=== PATIENT | female | born 1945 | race Caucasian/White ===

== ENCOUNTER 2020-10-03 23:03 | Inpatient (IN) | payer MEDICARE, SELFPAY ==
[2020-10-03 23:36] LABS: #Eosinphils 0.1 thou/uL (0.0-0.7); #Lymphocytes 1.2 thou/uL (1.20-3.40); #Monocytes 0.4 thou/uL (0.11-0.59); %Basophils 0.2 % (0.0-1.0); %Eosinophils 0.5 % (0.0-10.0); %Monocytes 3.3 % (0.0-10.0); Hemoglobin 14.1 g/dL (12.0-16.0); Mean Corpuscular HGB CONC 32.8 g/dL (32.0-36.0); Mean Corpuscular Hemoglobin 30.2 pg (27.0-31.0); Mean Platelet Volume 9.8 fL (7.4-10.4); Platelet Count 149 thou/uL (130-400); RBC Distribution Width 13.4 % (11.5-14.5); Red Blood Cell (RBC) Count 4.67 mill/uL (4.20-5.40); White Blood Cell (WBC) Count 10.6 thou/uL (4.8-10.8)
[2020-10-03 23:42] LABS: PTT 23.9 sec (22.9-36.1); Prothrombin Time 13.3 sec (12.0-14.7)
--- NOTE | 2020-10-03 23:48 | RAD ---
Chest one view Abdomen 2 views HISTORY: Abdominal pain. Colon obstruction. FINDINGS: Cardiac silhouette is magnified by projection. Pulmonary vasculature is unremarkable. No lobar consolidation or evidence of pneumothorax. There is gaseous distention of the colon. Rectum is not distended with gas. Contrast material is pres ent within the urinary bladder from recent CT. No differential air-fluid levels or evidence of free subdiaphragmatic gas. IMPRESSION : Gaseous distention of the colon, correlating with obstructive findings (at the sigmoid colon) seen on recent CT exam.
[2020-10-04] LABS: ALT (SGPT) 15 U/L (8-55); AST (SGOT) 40 U/L (5-34); Albumin 3.6 g/dL (3.4-4.8); Alkaline Phosphatase 69 U/L (40-110); Anion Gap 16 mmol/L (10-20); BUN (Urea Nitrogen) 21 mg/dL (9.8-20.1); Bilirubin, Total 0.4 mg/dL (0.2-1.2); CK (CPK) 49 U/L (29-168); Calc. Creatinine Clearance 0 mL/min (70-130); Calcium 9.9 mg/dL (7.8-10.44); Carbon Dioxide 23 mmol/L (23-31); Chloride 104 mmol/L (98-107); Globulin 3.3 g/dL (2.4-3.5); Glucose 134 mg/dL (83-110); Magnesium 2.1 mg/dL (1.6-2.6); Potassium 4.3 mmol/L (3.5-5.1); Protein, Total 6.9 g/dL (6.0-8.3); Sodium 139 mmol/L (136-145)
[2020-10-04] MEDS ORDERED: Ondansetron PF 4 MG/2 ML Vial ONE ×2 (00:19→09:38)
[2020-10-04] MEDS ORDERED: Morphine 4 MG/ML VIAL ONE (00:19)
[2020-10-04 03:17] VITALS: BMI 36.1
[2020-10-04] MEDS ORDERED: Morphine 4 MG/ML VIAL SLOW IVP PRN ×2 (03:40→14:19)
[2020-10-04] MEDS ORDERED: Ondansetron ODT 4 MG TAB SL PRN (03:45)
[2020-10-04] MEDS ORDERED: Acetaminophen 325 MG TAB PO PRN (03:45)
[2020-10-04] MEDS: Ondansetron PF 4 MG/2 ML Vial IVP PRN ×2 (03:46→08:16)
[2020-10-04] MEDS: Sodium Chloride 0.9% 1,000 ML IV SCH ×2 (03:47→12:07)
[2020-10-04 09:24] LABS: SARS-CoV-2 MS2 Positive; SARS-CoV-2 N Gene Negative; SARS-CoV-2 S Gene Negative; SARS-CoV-2 by NAA Not Detected (NotDetected); SARS-CoV-2 orf1ab Negative
[2020-10-04] MEDS ORDERED: Glycopyrrolate 0.2 MG/ML 5 ML SYRINGE ONE (09:38)
[2020-10-04] MEDS ORDERED: PHENYLEPHRINE-NS 100 MCG/ML 10 ML SYRINGE ONE (09:38)
[2020-10-04] MEDS ORDERED: Dexamethasone 20 MG/5 ML VIAL ONE (09:38)
[2020-10-04] MEDS ORDERED: Lidocaine 1% PF 5 ML VIAL ONE (09:38)
[2020-10-04] MEDS ORDERED: Succinylcholine 200 MG/10 ml SYRINGE FS ONE (09:38)
[2020-10-04] MEDS ORDERED: PROPOFOL 200 MG/20 ML VIAL ONE (09:38)
[2020-10-04] MEDS ORDERED: Rocuronium Bromide 10 MG/ML (10ML VIAL) ONE (09:38)
[2020-10-04] MEDS ORDERED: Ondansetron PF 4 MG/2 ML Vial IVP PRN ×2 (14:19→21:08)
[2020-10-04] MEDS ORDERED: Ondansetron ODT 4 MG TAB PO PRN (14:19)
[2020-10-04] MEDS ORDERED: Morphine 2 MG/ML VIAL SLOW IVP PRN (14:19)
[2020-10-04] MEDS ORDERED: hydrALAZINE 20 MG/ML VIAL SLOW IVP PRN (14:19)
[2020-10-04] MEDS ORDERED: Piperacillin/Tazobactam 4.5 GM in Sodium Chloride 0.9% 100 ML IVPB SCH (14:30)
--- NOTE | 2020-10-04 14:44 | HP ---
HISTORY OF PRESENT ILLNESS: Emma Navarro is a 75-year-old female, , lives by herself in [place]. She is ambulatory with a cane and wheeled walker at home. She experienced acute onset of pain yesterday. She had a small bowel movement yesterday morning, followed by crampy abdominal pain and distention and has not passed flatus or stool since. She presented to the [place] [facility], had a CAT scan revealing what appeared to be a masslike effect in the sigmoid colon and proximal colonic obstruction. The patient reports having had a colonoscopy she thinks two years ago, more or less in [place] and was told that was normal. She said that she has never had that again because of the prep experience. Family history for colon cancer is negative. ALLERGIES: NONE. TOBACCO: None. ALCOHOL: She has an occasional wine at night. MEDICATIONS AT HOME: 1. Eyedrops. 2. Hygroton 1 tab p.r.n. 3. Ditropan p.r.n. b.i.d. 4. Lipitor h.s. 5. Fosamax q.7 days. 6. Clonidine 1 tab p.o. daily. 7. Lisinopril 1 tab p.o. b.i.d. 8. Carvedilol 1 tab p.o. b.i.d. 9. Allopurinol 1 tab daily. PAST MEDICAL HISTORY: Hypertension and gout. PAST SURGICAL HISTORY: Hysterectomy, total; BSO; appendectomy. She reports having a colonoscopy she thinks two years ago or more. She reports having a cardiac stress test several years ago. She reports past history of diverticulitis, but not in the past five to eight years. REVIEW OF SYSTEMS: Ten point otherwise noncontributory. No cardiac symptoms. FAMILY HISTORY: Noncontributory. PHYSICAL EXAMINATION: VITAL SIGNS: Height 5 feet 1 inch, weight 191 pounds, 36 BMI. Temperature 98 degrees, pulse 75, blood pressure 160/65. HEAD, EARS, EYES, NOSE, AND THROAT: Unremarkable. GCS 15. NEUROLOGICAL: Intact. NECK: Carotids palpable without bruits. No neck masses. AXILLA: Without masses. GROIN: Without masses. LUNGS: Clear to auscultation. No wheezing. CARDIAC: Regular rate and rhythm without murmur or gallop. ABDOMEN: Distended, tympanitic, slightly tender, massively distended. EXTREMITIES: Unremarkable. Palpable pulses. LABORATORY DATA: White count 10 and hemoglobin 14. Basic metabolic profile unremarkable. BUN and creatinine 21 and 0.87. Liver function tests normal. COVID negative. ASSESSMENT AND PLAN: 1. Colonic obstruction, sigmoid. We will discuss with GI and coordinate sigmoidoscopy/proctoscopy and probable laparotomy with colon resection and colostomy. She understands risks and benefits and consents. 2. Hypertension. 3. Gout. 4. Obesity, BMI 36. Job ID: [id number]
[2020-10-04] MEDS ORDERED: Ketorolac Tromethamine 30 MG/ML VIAL IVP SCH (15:00)
[2020-10-04] MEDS: Lactated Ringer's 1,000 ML IV SCH (16:09)
[2020-10-04] MEDS: Gabapentin 300 MG CAP PO SCH ×2 (16:09→23:54)
[2020-10-04] MEDS ORDERED: Fentanyl 100 MCG/2 ML VIAL ONE ×3 (16:52→21:45)
[2020-10-04] MEDS ORDERED: Sodium Chloride 0.9% 100 ML ONE (17:11)
--- NOTE | 2020-10-04 18:22 | CON ---
DATE OF CONSULTATION: 10/04/2020 REQUESTING PHYSICIAN: Manuelito Nelson MD REASON FOR CONSULTATION: Colonic obstruction. HISTORY OF PRESENT ILLNESS: Emma Navarro is a very pleasant 75-year-old woman, who was admitted here today after being transferred from [place] with concern for sigmoid colon obstruction. She has a history significant for hysterectomy and appendectomy. She recalls having had an attack of diverticulitis greater than 5 years ago, which resolved with antibiotics. She recalls having had similar presentation with severe abdominal pain and distention and having had a colonoscopy within the past year, she believes it was in October 2019 in [place]. She says she was told it was very difficult exam, but that there were no significant findings. I see a CT scan had been performed at that time, which had evidently suggested sigmoid obstruction. At any rate, the patient did just fine without any ongoing gastrointestinal symptoms for most of the year, but yesterday she had the acute onset of severe lower abdominal cramping pain, which became more generalized and she had progressive abdominal distention, nausea and vomiting. The crampy pain remains severe. She has not passed any gas or had any bowel movement since yesterday morning prior to onset of symptoms. She is hemodynamically stable. CT scan at the outside ER demonstrated sigmoid obstruction with severely distended bowel above the area and nondistended rectum with mass-like prominence focally in the sigmoid colon, suspicious for neoplasm with subtle adjacent fat stranding. She has been evaluated by General surgery, Dr. Nelson, who is planning for laparoscopy and possible partial colectomy later today. We are consulted for consideration of preoperative sigmoidoscopic evaluation. REVIEW OF SYSTEMS: Full review of systems including constitutional, head, eyes, ears, nose, throat, GI, , cardiovascular, respiratory, musculoskeletal, neurologic systems is negative except as noted in the HPI. PAST MEDICAL HISTORY: Hypertension, gout, hysterectomy, bilateral salpingo-oophorectomy, appendectomy, diverticulitis greater than 5 years ago. ALLERGIES: NO KNOWN DRUG ALLERGIES. OUTPATIENT MEDICATIONS: 1. Hygroton. 2. Lasix. 3. Ditropan. 4. Lipitor. 5. Fosamax. 6. Clonidine. 7. Lisinopril. 8. Coreg. 9. Allopurinol. FAMILY HISTORY: Negative for colon cancer. SOCIAL HISTORY: She does not smoke. She will occasionally have a glass of wine. PHYSICAL EXAMINATION: VITAL SIGNS: Temperature 98.0, pulse 75, blood pressure 160/65, and oxygen saturation 90% on room air. GENERAL: A 75-year-old woman, lying in bed comfortably, in mild distress from abdominal pain. SKIN: No jaundice, no rashes were palpable. EYES: No scleral icterus. Extraocular movements intact. ENT: Mucous membranes moist. No oral lesions. LYMPH: No submandibular or supraclavicular lymphadenopathy. THYROID: Nontender to palpation. HEART: Regular rate and rhythm. LUNGS: Clear to auscultation bilaterally. ABDOMEN: Severely distended, tympanitic to percussion throughout. Bowel sounds are hypoactive. Soft, diffusely tender to palpation, but no guarding or rebound tenderness. EXTREMITIES: No peripheral edema. VESSELS: Radial pulses 2+ bilaterally. NEURO: Cranial nerves II through XII intact bilaterally. No focal deficits. LABORATORY STUDIES: WBC 10.6, hemoglobin 14.1, and platelets 149. Sodium 139, potassium 4.3, BUN 21, creatinine 0.87, total bilirubin 0.4, alkaline phosphatase 69, AST 40, ALT 15, albumin 3.6, lactic acid 1.2. INR 1.0. COVID PCR negative. IMAGING STUDIES: Abdominal x-ray shows colonic distention with nondistended rectum. Outside CT of the abdomen and pelvis demonstrates moderate to high-grade sigmoid obstruction at a focal area of mass-like prominence suspicious for neoplasm. There is subtle adjacent fat stranding. ASSESSMENT AND PLAN: Sigmoid colon obstruction. The fact that she evidently had a similar presentation with similar CT findings back in October, negative colonoscopic investigation at that time per her report, is a bit reassuring that this may represent a benign rather than neoplastic process. On the other hand, neoplasm certainly is still in the differential. I agree with Dr. Nelson that preoperative flexible sigmoidoscopy is indicated for preoperative planning. We are going to have to perform this unprepped. I discussed with the patient that there is risk of complication in this context including colonic perforation. We are tentatively planning to take the patient to endoscopy just prior to the OR and perform procedures under the same anesthesia. I have discussed the case with Dr. Nelson as well. Thank you for the consultation. Please call anytime with questions or concerns. Job ID: [id number]
--- NOTE | 2020-10-04 18:50 | OP ---
DATE OF PROCEDURE: 10/04/2020 IMCU SPECIALIST SURGEON: None. PROCEDURE PERFORMED: Flexible sigmoidoscopy. INDICATION: Sigmoid colon obstruction, preoperative evaluation. MEDICATIONS: See anesthesia record. FINDINGS: After discussion of the risks, benefits, and alternatives of the procedure, informed consent was obtained and witnessed. Pre-endoscopic cardiopulmonary examination was satisfactory. Time-out was performed before sedation was achieved. Sedation was achieved with Anesthesia assistance in the endoscopy unit. The patient was under general anesthesia. She was placed in the left lateral decubitus position. Digital rectal exam was performed, which demonstrated some external hemorrhoidal skin tags. A Pentax adult colonoscope was inserted into the anus and passed forward in the usual fashion. There was brown-colored solid stool within the sigmoid colon. I was able to gently get past much of this stool to a distance of 30 cm examined, but there was much more copious brown stool in this area completely obscuring view of any of the colon more proximal to 30 cm. Where examined, the colonic mucosa appeared normal. I was unable to advance the endoscope any further without completely losing visualization due to the stool. Therefore, I was unable to ascertain the nature of her more proximal sigmoid obstruction. Retroflexion in the rectum demonstrated some internal hemorrhoids. The colonoscope was completely withdrawn and the procedure was completed. The patient was then transported to the operating room as previously planned. She tolerated the procedure well. There were no immediate postprocedure complications. IMPRESSION: 1. Retained stool in the sigmoid colon, obscuring visualization more proximal than 30 cm. 2. Normal colonic mucosa of the distal 38 cm of the rectosigmoid colon. 3. Internal hemorrhoids. 4. Unable to visualize the cause of her more proximal sigmoid obstruction. RECOMMENDATION: Proceed to the OR as already planned. We will discuss findings with Dr. Nelson. Job ID: [id number]
[2020-10-04] MEDS ORDERED: traMADol HCl 50 MG TAB PO PRN (20:19)
[2020-10-04] MEDS ORDERED: Promethazine HCl 25 MG/ML VIAL SLOW IVP PRN (20:24)
[2020-10-04] MEDS ORDERED: Meperidine HCl/PF 25 MG/ML VIAL SLOW IVP PRN (20:24)
[2020-10-04] MEDS ORDERED: Ondansetron HCl/PF 4 MG/2 ML Vial IVP PRN (20:24)
[2020-10-04] MEDS ORDERED: HYDROmorphone 2 MG/ML VIAL SLOW IVP PRN (20:24)
[2020-10-04] MEDS ORDERED: Promethazine HCl 25 MG/ML VIAL IM PRN ×2 (20:24→21:08)
[2020-10-04] MEDS ORDERED: Naloxone HCl 0.4 mg/ml Vial IV PRN (21:08)
[2020-10-04] MEDS ORDERED: diphenhydrAMINE 50 MG/ML VIAL IM PRN (21:08)
[2020-10-04] MEDS ORDERED: Zolpidem Tartrate 5 MG TAB PO PRN (21:08)
[2020-10-04] MEDS ORDERED: HYDROmorphone 10 mg/100 ml CADD IVPB PRN (21:08)
[2020-10-04] MEDS ORDERED: diphenhydrAMINE 25 MG CAP PO PRN (21:08)
[2020-10-04] MEDS ORDERED: diphenhydrAMINE 50 MG/ML VIAL IVP PRN (21:08)
[2020-10-04] MEDS ORDERED: Communication Order-Pharmacy FS SCH (21:15)
[2020-10-04] MEDS: Latanoprost 0.005% Ophth Soln 2.5 ml Bottle EA EYE SCH (23:54)
[2020-10-04] MEDS: Carvedilol 6.25 MG TAB PO SCH (23:54)
[2020-10-04] MEDS: Oxybutynin 5 MG TAB PO SCH (23:55)
[2020-10-04] MEDS: Lisinopril 20 MG TAB PO SCH (23:55)
[2020-10-05] MEDS: Lactated Ringer's 1,000 ML IV SCH ×2 (00:12→08:58)
[2020-10-05] MEDS: Enoxaparin Sodium 40 MG/0.4 ML SYRINGE SC SCH ×2 (00:13→21:56)
[2020-10-05] MEDS: Famotidine/PF 20 mg/2ml Vial SLOW IVP SCH ×2 (00:13→08:54)
[2020-10-05 06:30] LABS: ALT (SGPT) 16 U/L (8-55); AST (SGOT) 27 U/L (5-34); Albumin 3.2 g/dL (3.4-4.8); Alkaline Phosphatase 46 U/L (40-110); Anion Gap 12 mmol/L (10-20); BUN (Urea Nitrogen) 22 mg/dL (9.8-20.1); Bilirubin, Total 0.6 mg/dL (0.2-1.2); Calc. Creatinine Clearance 83 mL/min (70-130); Calcium 7.9 mg/dL (7.8-10.44); Carbon Dioxide 25 mmol/L (23-31); Chloride 110 mmol/L (98-107); Globulin 2.3 g/dL (2.4-3.5); Glucose 147 mg/dL (83-110); Protein, Total 5.5 g/dL (6.0-8.3); Sodium 143 mmol/L (136-145)
[2020-10-05 06:51] LABS: #Lymphocytes 0.6 thou/uL (1.20-3.40); #Monocytes 0.3 thou/uL (0.11-0.59); #Neutrophils 6.1 thou/uL (1.40-6.50); %Basophils 0.2 % (0.0-1.0); %Eosinophils 0.1 % (0.0-10.0); %Lymphocytes 8.2 % (21.0-51.0); %Monocytes 4.8 % (0.0-10.0); %Neutrophils 86.7 % (42.0-75.0); Hemoglobin 11.3 g/dL (12.0-16.0); MDiff Complete? YES; Mean Corpuscular HGB CONC 32.9 g/dL (32.0-36.0); Mean Corpuscular Volume 94.1 fL (78.0-98.0); Mean Platelet Volume 10.3 fL (7.4-10.4); Platelet Count 118 thou/uL (130-400); Platelet Morphology Comment Appears Decreased; Polychromasia SLIGHT = 2-3 cells (100X) (0-2/hpf); RBC Distribution Width 13.7 % (11.5-14.5); Red Blood Cell (RBC) Count 3.66 mill/uL (4.20-5.40); White Blood Cell (WBC) Count 7.1 thou/uL (4.8-10.8)
[2020-10-05] MEDS: Gabapentin 300 MG CAP PO SCH ×4 (08:51→22:03)
[2020-10-05] MEDS: Oxybutynin 5 MG TAB PO SCH ×3 (08:53→22:05)
[2020-10-05] MEDS: Carvedilol 6.25 MG TAB PO SCH ×3 (08:53→22:04)
[2020-10-05] MEDS: Lisinopril 20 MG TAB PO SCH ×3 (08:53→22:05)
[2020-10-05] MEDS: cloNIDine 0.1 MG TAB PO SCH (08:53)
[2020-10-05] MEDS: Ketorolac Tromethamine 30 MG/ML VIAL IVP PRN ×2 (08:56→16:13)
[2020-10-05] MEDS ORDERED: cloNIDine 0.1 MG TAB PO SCH (09:00)
[2020-10-05] MEDS ORDERED: HYDROcodone/Acetaminophen 5/325 mg Tablet PO PRN ×2 (10:22→10:23)
[2020-10-05] MEDS ORDERED: traMADol HCl 50 MG TAB PO PRN ×2 (10:23)
--- NOTE | 2020-10-05 11:13 | OP ---
DATE OF PROCEDURE: 10/04/2020 PREOPERATIVE DIAGNOSES: Sigmoid colon obstruction of uncertain etiology. History of colonoscopy for the patient two to three years ago at an outlying facility. Dr. Michael unsuccessful proctoscopy, only could see stool in distal rectosigmoid. POSTOPERATIVE DIAGNOSES: Sigmoid colon obstruction of uncertain etiology. History of colonoscopy for the patient two to three years ago at an outlying facility. Dr. Michael unsuccessful proctoscopy, only could see stool in distal rectosigmoid. Obstructive process mid to distal sigmoid with adherent left ovary and tube and morbid obesity. PROCEDURES PERFORMED: Exploratory laparotomy; mobilization of splenic flexure, transverse colon, and left colon; sigmoid colon resection with en bloc resection of left tube and ovary; Jude's pouch marked with a 2-0 Prolene suture; and colostomy left lower quadrant. ANESTHESIA: General. DESCRIPTION OF PROCEDURE: The patient was taken to the operating room, where under general anesthesia in the supine position, abdomen was prepared with ChloraPrep and draped in routine fashion. Incision was made from the pubis to above the umbilicus, carried down to skin and subcutaneous tissue, midline fascia, and abdominal cavity sharply. There was some ascites present from the obstructive process. Left colon was mobilized carefully. Left ureter identified deep in the retroperitoneum, difficult to identify due to morbid obesity, but it was definitely identified. There was inflammatory reaction in the pelvis, especially in the pelvic sidewall with distortion of the colon. As the sigmoid colon was mobilized from the pelvic sidewall, inflammatory attachments of the colon was straightened out and convolutions resolved. Mesentery mobilized in the sacral hollow facilitating mobilization, identifying the inferior mesenteric vessels. Left ureter identified, kept free of harm as VIPIN divided between clamps, ligated with 2-0 silk ties. LigaSure was used and cautery used where possible. Gastrocolic ligament was taken down to the distal transverse colon and splenic flexure mobilized. Above the obstructive process at the junction of the descending sigmoid colon divided with a TORRI 75 stapler after it was decompressed distally of gas as it was markedly distended. Once it was decompressed, abdominal cavity irrigated, irrigant evacuated. Hemostasis obtained. Sponge and needle counts were correct. The defect was made in the left lower quadrant abdominal wall and a cruciate incision made over the anterior rectus sheath spreading the rectus and posterior fascia. Peritoneum incised, dilated to two to three fingerbreadths and colon brought through this defect. Omentum redundant, resected with the LigaSure. Good hemostasis noted. Small bowel was not dilated. Colon had been decompressed. Seprafilm three sheaths placed between the omentum and abdominal wall especially around the colostomy site left lower quadrant. The fascia was approximated with #1 PDS. Gloves and gowns changed and skin and subcutaneous tissues irrigated. Skin was loosely approximated with gaviota and RACHEL incisional suction device applied. At this point, the colostomy was matured, excising redundant colon, submitted to Pathology and 4-quadrant Damian sutures of 3-0 Vicryl placed and simple sutures 3-0 Vicryl placed, completing colostomy maturation and appliance applied. The patient tolerated the procedure well. Job ID: [id number]
--- NOTE | 2020-10-05 14:09 | PRG ---
DATE OF SERVICE: 10/05/2020 SUBJECTIVE: Emma Navarro is doing well today. She had reports not having any pain. BEZEL CUTTER was discontinued. She is tolerating her liquids. She has copious output of her colostomy. Colostomy looks healthy. OBJECTIVE: VITAL SIGNS: Temperature 98.2 degrees, heart rate 84, and blood pressure 124/42. GENERAL: The patient has not been out of bed yet into a chair. We will ask her nurses to do that. LUNGS: Clear to auscultation. CARDIAC: Regular rate and rhythm without murmur or gallop. ABDOMEN: Bowel sounds present. Colostomy healthy. Abundant stool in the bag. LABORATORY DATA: White count 11 and hemoglobin 7.1. Basic metabolic profile is normal. ASSESSMENT AND PLAN: Doing well after sigmoid colon resection with a stricture versus tumor, pathology pending. She has a colostomy, Wound Care is teaching her colostomy care. She has viewed the video. Anticipate her going home in the next 1 to 2 days. Would need to mobilize her soon as possible today. May begin ambulation and up in a chair. Hemoglobin is stable. Job ID: [id number]
--- NOTE | 2020-10-05 20:22 | PRG ---
DATE OF SERVICE: 10/05/2020 SUBJECTIVE: Ms. Navarro underwent surgery yesterday for obstructive colon, pathology is pending. She has not yet started to pass gas. She reports abdomen is still a little bit tender. She has no nausea or vomiting. OBJECTIVE: VITAL SIGNS: Temperature is 98, pulse 78, and blood pressure 140/76. ABDOMEN: Bowel sounds are quiescent. Colostomy appears healthy. There was stool in the bag yesterday. There is gas in the bag today. LABORATORY DATA: White count 7.1, hemoglobin 11.3, and platelets 118. INR 1. Sodium 133, potassium 4, BUN and creatinine 22 and 0.7. CEA was 5.2. COVID test negative, pathology pending. ASSESSMENT: Colon obstruction, incomplete colonoscopy, unable to reach obstructed area by Dr. Michael yesterday. PLAN: 1. Await pathology. 2. Discharge per Surgery when ostomy functioning well and able to tolerate p.o. We will be available to perform completion colonoscopy in the outpatient setting after 6 to 8 weeks once she is recovered and once . She will need to follow up with Dr. Michael after discharge in our office. Job ID: [id number]
[2020-10-05] MEDS: Latanoprost 0.005% Ophth Soln 2.5 ml Bottle EA EYE SCH (21:56)
[2020-10-06] MEDS ORDERED: Lactated Ringer's 1,000 ML IV SCH (06:45)
[2020-10-06] MEDS: Lactated Ringer's 1,000 ML IV SCH ×2 (08:21→15:17)
[2020-10-06] MEDS: Ketorolac Tromethamine 30 MG/ML VIAL IVP PRN ×2 (08:22→18:32)
[2020-10-06] MEDS: Oxybutynin 5 MG TAB PO SCH ×2 (08:22→20:20)
[2020-10-06] MEDS: Lisinopril 20 MG TAB PO SCH ×2 (08:22→20:21)
[2020-10-06] MEDS: cloNIDine 0.1 MG TAB PO SCH (08:22)
[2020-10-06] MEDS: Carvedilol 6.25 MG TAB PO SCH ×2 (08:22→20:20)
[2020-10-06 08:33] LABS: #Lymphocytes 0.8 thou/uL (1.20-3.40); #Monocytes 0.4 thou/uL (0.11-0.59); #Neutrophils 5.6 thou/uL (1.40-6.50); %Basophils 0.2 % (0.0-1.0); %Eosinophils 0.5 % (0.0-10.0); %Lymphocytes 12.2 % (21.0-51.0); %Monocytes 6.2 % (0.0-10.0); %Neutrophils 80.9 % (42.0-75.0); Hemoglobin 10.2 g/dL (12.0-16.0); Mean Corpuscular HGB CONC 34.2 g/dL (32.0-36.0); Mean Corpuscular Hemoglobin 32.2 pg (27.0-31.0); Mean Corpuscular Volume 94.3 fL (78.0-98.0); Mean Platelet Volume 10.1 fL (7.4-10.4); Platelet Count 92 thou/uL (130-400); RBC Distribution Width 13.5 % (11.5-14.5); Red Blood Cell (RBC) Count 3.15 mill/uL (4.20-5.40); White Blood Cell (WBC) Count 6.9 thou/uL (4.8-10.8)
[2020-10-06 08:46] LABS: Anion Gap 14 mmol/L (10-20); BUN (Urea Nitrogen) 28 mg/dL (9.8-20.1); Calc. Creatinine Clearance 77 mL/min (70-130); Calcium 7.9 mg/dL (7.8-10.44); Carbon Dioxide 23 mmol/L (23-31); Chloride 109 mmol/L (98-107); Glucose 109 mg/dL (83-110); Potassium 3.7 mmol/L (3.5-5.1); Sodium 142 mmol/L (136-145)
[2020-10-06] MEDS: Acetaminophen 500 MG TAB PO PRN (18:31)
[2020-10-06] MEDS ORDERED: Chlorthalidone 25 MG TAB PO PRN (18:36)
--- NOTE | 2020-10-06 18:53 | PRG ---
DATE OF SERVICE: 10/06/2020 SUBJECTIVE: Ms. Navarro is doing well today. She is tolerating her diet. She is more awake after stopping the gabapentin. OBJECTIVE: VITAL SIGNS: Temperature 98.2 degrees, pulse 67, blood pressure 113/71. LUNGS: Clear to auscultation. CARDIAC: Regular rate and rhythm without murmur or gallop. ABDOMEN: Soft. Good bowel sounds. Colostomy is healthy. Incisional wound VAC is in place. She is urinating on her own. LABORATORY DATA: Her white count is 6 and hemoglobin 10.2. Basic metabolic profile normal. CEA level 5.2. Pathology of her resected colon reveals diverticulosis with adhesions, atrophic ovary and fallopian tubes. Stricture noted during pathology due to diverticular disease. ASSESSMENT AND PLAN: Diverticular stricture with colon obstruction, status post resection and colostomy. The patient is doing well. She is still not stable on her feet. We will plan to send her to [facility] for physical therapy if bridged to go home. They will help her with the colostomy care. We will remove her incisional wound VAC tomorrow. Her colostomy can be reversed in 3 to 4 months, laparoscopically attempt. Job ID: [id number]
[2020-10-06] MEDS: Atorvastatin Calcium 40 MG TAB PO SCH (20:20)
[2020-10-06] MEDS: Latanoprost 0.005% Ophth Soln 2.5 ml Bottle EA EYE SCH (20:20)
[2020-10-06] MEDS: Enoxaparin Sodium 40 MG/0.4 ML SYRINGE SC SCH (20:21)
[2020-10-07] MEDS: Oxybutynin 5 MG TAB PO SCH ×2 (08:58→20:01)
[2020-10-07] MEDS: Carvedilol 6.25 MG TAB PO SCH ×2 (08:58→20:01)
[2020-10-07] MEDS: Allopurinol 300 MG TAB PO SCH (08:58)
[2020-10-07] MEDS: cloNIDine 0.1 MG TAB PO SCH (09:01)
[2020-10-07] MEDS: Lisinopril 20 MG TAB PO SCH (09:01)
[2020-10-07] MEDS: Atorvastatin Calcium 40 MG TAB PO SCH (20:01)
[2020-10-07] MEDS: Enoxaparin Sodium 40 MG/0.4 ML SYRINGE SC SCH (20:01)
[2020-10-07] MEDS: Latanoprost 0.005% Ophth Soln 2.5 ml Bottle EA EYE SCH (20:01)
[2020-10-07] MEDS: Acetaminophen 500 MG TAB PO PRN (20:03)
[2020-10-07] MEDS: Ketorolac Tromethamine 30 MG/ML VIAL IVP PRN (20:03)
[2020-10-08] MEDS: Acetaminophen 500 MG TAB PO PRN (05:33)
[2020-10-08] MEDS: Carvedilol 6.25 MG TAB PO SCH (08:48)
[2020-10-08] MEDS: Allopurinol 300 MG TAB PO SCH (08:48)
[2020-10-08] MEDS: Oxybutynin 5 MG TAB PO SCH (08:48)
--- NOTE | 2020-10-08 15:31 | PRG ---
DATE OF SERVICE: 10/08/2020 SUBJECTIVE: Emma Navarro is doing well today. She reports no pain. She states that she is pleased with the nursing care that they are so nice. She is tolerating a regular diet. Her colostomy is functioning well. She is having good bowel movements. Her wound looks good. OBJECTIVE: LUNGS: Clear to auscultation. CARDIAC: Regular rate and rhythm. No murmur or gallop. ABDOMEN: Soft and nontender. LABORATORY DATA: None since the , two days ago. They have been stable. ASSESSMENT AND PLAN: Doing well. The patient refused care at the residential initial facility because of a COVID outbreak there. She was subsequently referred to a facility and once we were close to arranging definitive placement, the patient changed her mind and wanted to go to home. Apparently, her son has hired a private 24-hour caregiver and home health has been arranged to help her with her colostomy care. Once arrangements were made, the patient can be discharged home later today or tomorrow. Job ID: [id number]
[2020-10-08 16:40] VITALS: BP 144/82; TEMP 98.6
--- NOTE | 2020-10-09 07:11 | DIS ---
DATE OF ADMISSION: 10/04/2020 DATE OF DISCHARGE: 10/08/2020 DISCHARGE DIAGNOSES: 1. Obesity, 36 BMI. 2. Diverticular stricture with colon obstruction. 3. Hypertension. 4. Bladder spasms. 5. Gout. PROCEDURES DURING THIS HOSPITALIZATION AND HOSPITAL COURSE: CT scan abdomen and pelvis, transferred from [place] findings consistent with a sigmoid colon obstruction. Abdominal x-rays on arrival consistent with colon obstruction. History of a colonoscopy, she thinks 2 to 3 years without evident problems. No prior history of diverticulitis. Consultation with Dr. Michael, who placed the scope, could not get beyond the mid sigmoid colon, stool, and stricture. On 10/05/2020, open left colon resection, splenic flexure mobilization, colostomy, Jude's procedure. Pathology revealing changes of a diverticular stricture. Postoperatively, she convalesced, tolerated her diet with a healthy colostomy and transferred to [place] longterm with a hemoglobin 10.2, white count 6.9. Incisional wound VAC was used. She has gaviota that will need to be removed in my office in about 2 weeks. Diet as tolerated. No lifting over 30 pounds for 6 weeks. Colostomy care instructions initiated in the hospital by wound care, she watched the video. The patient is mobile, but not independently so and is thus going to longterm. Follow up in my office in 10 days. DISCHARGE MEDICATIONS: As preoperatively, in addition she will take ibuprofen, Tylenol, Ultram as needed. She does take, 1. Latanoprost eyedrops. 2. Hygroton p.o. 3. Ditropan p.o. 4. Lipitor daily. 5. Fosamax. 6. Coreg. 7. Zyloprim. Job ID: [id number]
--- NOTE | 2020-10-09 11:00 | EKG ---
Test Reason : Blood Pressure : / mmHG Vent. Rate : 074 BPM Atrial Rate : 074 BPM P-R Int : 166 ms QRS Dur : 080 ms QT Int : 418 ms P-R-T Axes : 089 031 025 degrees QTc Int : 463 ms Normal sinus rhythm Nonspecific ST abnormality Abnormal ECG Confirmed by NILAY INTERIANO DO ([id number]), book editor RODOLFO DINH ([id number] on 10/09/2020 11:00:04 AM Referred By: Confirmed By:NILAY INTERIANO DO
[2020-10-09] MEDS ORDERED: Ibuprofen 600 MG TAB PO PRN (22:00)
[2020-10-13] MEDS ORDERED: Alendronate Sodium 70 mg Tablet PO SCH (09:00)
== END 2020-10-08 18:50 | disposition home health service (06) | DRG 330 ==
LOC: ERS 23:03 → SURG A 10-04 00:38
PROVIDERS: ADMIT Surgery; ATTEND Surgery
PROC: 0DBN0ZZ Excision of Sigmoid Colon, Open Approach (ICD-10-PCS; principal; 2020-10-04)
PROC: 0D1E0Z4 Bypass Large Intestine to Cutaneous, Open Approach (ICD-10-PCS; 2020-10-04)
PROC: 0UB10ZZ Excision of Left Ovary, Open Approach (ICD-10-PCS; 2020-10-04)
PROC: 0UB60ZZ Excision of Left Fallopian Tube, Open Approach (ICD-10-PCS; 2020-10-04)
PROC: 0DJD8ZZ Inspection of Lower Intestinal Tract, Via Natural or Artificial Opening Endoscopic (ICD-10-PCS; 2020-10-04)
DX: K57.30 Diverticulosis of large intestine without perforation or abscess without bleeding (principal); Q43.8 Other specified congenital malformations of intestine; K56.51 Intestinal adhesions [bands], with partial obstruction; I10 Essential (primary) hypertension; N32.89 Other specified disorders of bladder; Z20.828 Contact with and (suspected) exposure to other viral communicable diseases; M10.9 Gout, unspecified; K44.9 Diaphragmatic hernia without obstruction or gangrene; E66.01 Morbid (severe) obesity due to excess calories; Z68.36 Body mass index [BMI] 36.0-36.9, adult; Z90.710 Acquired absence of both cervix and uterus; Z90.722 Acquired absence of ovaries, bilateral; Z90.49 Acquired absence of other specified parts of digestive tract; Z79.899 Other long term (current) drug therapy
CPT/HCPCS: 36415; 74022; 80048; 80053; 82378; 82550; 83605; 83735; 85025; 85610; 85730; 86850; 86900; 86901; 87635; 88307; 93005; 96374; 96375; J0360; J1100; J1650; J1885; J2270; J2405; J2704; J3010; J3490; S0028; U0003

== ENCOUNTER 2020-12-29 10:56 | Outpatient (CLI) | payer MEDICARE ==
[2020-12-29 12:57] LABS: #Eosinphils 0.4 10x3/uL (0.0-0.5); #Monocytes 0.4 10x3/uL (0.0-1.1); #Neutrophils 4.6 10x3/uL (1.5-8.4); %Basophils 0.6 % (0.0-2.0); %Eosinophils 5.2 % (0.0-6.0); %Lymphocytes 22.8 % (18.0-47.0); %Monocytes 5.9 % (0.0-10.0); %Neutrophils 65.2 % (40.0-75.0); Hemoglobin 11.3 g/dL (12.0-15.5); Mean Corpuscular HGB CONC 30.5 g/dL (32.0-36.0); Mean Corpuscular Hemoglobin 28.6 pg (27.0-33.0); Mean Corpuscular Volume 93.7 fl (81.6-98.3); Mean Platelet Volume 11.8 fl (7.4-10.4); Platelet Count 196 10x3/uL (150-450); RBC Distribution Width 16.3 % (11.5-14.5); Red Blood Cell (RBC) Count 3.95 10x6/uL (3.90-5.03)
[2020-12-29 13:11] LABS: ALT (SGPT) 18 U/L (8-55); AST (SGOT) 21 U/L (5-34); Albumin 3.8 g/dL (3.4-4.8); Alkaline Phosphatase 73 U/L (40-110); Anion Gap 15 mmol/L (10-20); BUN (Urea Nitrogen) 14 mg/dL (9.8-20.1); Bilirubin, Total 0.3 mg/dL (0.2-1.2); Calc. Creatinine Clearance 0 mL/min (70-130); Calcium 10.1 mg/dL (7.8-10.44); Carbon Dioxide 30 mmol/L (23-31); Chloride 104 mmol/L (98-107); Globulin 2.8 g/dL (2.4-3.5); Glucose 109 mg/dL (83-110); Potassium 4.8 mmol/L (3.5-5.1); Protein, Total 6.6 g/dL (5.8-8.1); Sodium 144 mmol/L (136-145)
[2020-12-29 16:23] LABS: Hemoglobin A1c 5.1 % (4.0-6.0)
[2020-12-30 02:35] LABS: SARS-CoV-2 PCR by NAA Not Detected (NotDetected)
== END 2020-12-29 10:57 | disposition home or self-care (01) ==
LOC: LABBT 10:56
PROVIDERS: ATTEND Specialist
DX: Z01.818 Encounter for other preprocedural examination (principal); Z43.3 Encounter for attention to colostomy; Z90.49 Acquired absence of other specified parts of digestive tract; Z20.822 Contact with and (suspected) exposure to COVID-19
CPT/HCPCS: 80053; 83036; 85025; 93005; U0003; U0005; 87635; 93010

== ENCOUNTER 2020-12-29 11:00 | Inpatient (IN) | payer MEDICARE ==
[2021-01-03] MEDS ORDERED: Piperacillin/Tazobactam 3.375 GM VIAL ONE (06:08)
[2021-01-03] MEDS ORDERED: Acetaminophen 500 MG TAB ONE (06:09)
[2021-01-03] MEDS ORDERED: Sodium Chloride 0.9% 100 ML ONE (06:09)
[2021-01-03] MEDS ORDERED: Ketorolac Tromethamine 30 MG/ML VIAL ONE (06:09)
[2021-01-03] MEDS ORDERED: Fentanyl 100 MCG/2 ML VIAL ONE ×3 (06:20→07:50)
[2021-01-03] MEDS ORDERED: Midazolam HCl 2 mg/2 ml Vial ONE (06:20)
[2021-01-03] MEDS ORDERED: Bupivacaine PF 0.5% 30 ML VIAL ONE (06:35)
[2021-01-03] MEDS ORDERED: Famotidine/PF 20 mg/2ml Vial ONE (07:50)
[2021-01-03] MEDS ORDERED: Propofol 500 MG/50 ML VIAL ONE ×2 (07:50→11:09)
[2021-01-03] MEDS ORDERED: PHENYLEPHRINE-NS 100 MCG/ML 10 ML SYRINGE ONE (08:03)
[2021-01-03] MEDS ORDERED: Dexamethasone 20 MG/5 ML VIAL ONE (08:03)
[2021-01-03] MEDS ORDERED: Bupivacaine HCl 0.5%/Epinephrine 1:200,000/PF 30 ml Vial ONE (08:03)
[2021-01-03] MEDS ORDERED: Glycopyrrolate 0.2 MG/ML 5 ML SYRINGE ONE (08:03)
[2021-01-03] MEDS ORDERED: Ondansetron PF 4 MG/2 ML Vial ONE (08:03)
[2021-01-03] MEDS ORDERED: PROPOFOL 200 MG/20 ML VIAL ONE (08:03)
[2021-01-03] MEDS ORDERED: Rocuronium Bromide 10 MG/ML (10ML VIAL) ONE (08:03)
[2021-01-03] MEDS ORDERED: ePHEDrine 50 MG/ML VIAL ONE (08:03)
[2021-01-03] MEDS ORDERED: Lidocaine 1% PF 5 ML VIAL ONE (08:03)
[2021-01-03] MEDS ORDERED: Phenylephrine 10 MG/ML VIAL ONE (08:44)
[2021-01-03] MEDS ORDERED: Promethazine HCl 25 MG/ML VIAL SLOW IVP PRN (09:41)
[2021-01-03] MEDS ORDERED: Promethazine HCl 25 MG/ML VIAL IM PRN (09:41)
[2021-01-03] MEDS ORDERED: SUGAMMADEX SODIUM 200 MG/2 ML VIAL ONE (10:29)
[2021-01-03] MEDS ORDERED: Ondansetron PF 4 MG/2 ML Vial IVP PRN (13:08)
[2021-01-03] MEDS ORDERED: Morphine 4 MG/ML VIAL SLOW IVP PRN (13:08)
[2021-01-03] MEDS ORDERED: traMADol HCl 50 MG TAB PO PRN (13:13)
[2021-01-03] MEDS ORDERED: hydrALAZINE 20 MG/ML VIAL ONE (13:24)
[2021-01-03] MEDS: hydrALAZINE 20 MG/ML VIAL SLOW IVP PRN (13:25)
[2021-01-03] MEDS ORDERED: Heparin 1,000 UNITS/ML VIAL ONE (15:39)
[2021-01-03] MEDS: Lactated Ringer's 1,000 ML IV SCH ×2 (20:14→20:15)
[2021-01-03] MEDS: Meclizine HCl 25 MG TAB PO SCH ×2 (20:15→20:19)
[2021-01-03] MEDS: Acetaminophen 500 MG TAB PO SCH (20:16)
[2021-01-03] MEDS: Enoxaparin Sodium 40 MG/0.4 ML SYRINGE SC SCH (20:18)
[2021-01-03] MEDS: Ketorolac Tromethamine 30 MG/ML VIAL IVP SCH (20:18)
[2021-01-03] MEDS: Famotidine/PF 20 mg/2ml Vial SLOW IVP SCH (20:19)
[2021-01-03] MEDS: Lisinopril 20 MG TAB PO SCH (20:19)
[2021-01-03] MEDS: Oxybutynin 5 MG TAB PO SCH ×2 (20:19→20:33)
[2021-01-03] MEDS: Famotidine 20 MG TAB PO SCH (20:19)
[2021-01-03] MEDS: Carvedilol 6.25 MG TAB PO SCH (20:26)
[2021-01-04] MEDS: Ketorolac Tromethamine 30 MG/ML VIAL IVP SCH ×5 (00:36→23:07)
[2021-01-04] MEDS: Acetaminophen 500 MG TAB PO SCH ×5 (00:37→23:07)
[2021-01-04] MEDS: Lactated Ringer's 1,000 ML IV SCH ×3 (05:13→21:56)
[2021-01-04 06:50] LABS: #Lymphocytes 0.7 thou/uL (1.20-3.40); #Monocytes 0.5 thou/uL (0.11-0.59); #Neutrophils 8.5 thou/uL (1.40-6.50); %Eosinophils 0.2 % (0.0-10.0); %Lymphocytes 7.1 % (21.0-51.0); %Monocytes 4.8 % (0.0-10.0); %Neutrophils 87.9 % (42.0-75.0); Hemoglobin 11.2 g/dL (12.0-16.0); Mean Corpuscular HGB CONC 32.3 g/dL (32.0-36.0); Mean Corpuscular Hemoglobin 29.9 pg (27.0-31.0); Mean Corpuscular Volume 92.5 fL (78.0-98.0); Mean Platelet Volume 9.9 fL (7.4-10.4); Platelet Count 132 thou/uL (130-400); RBC Distribution Width 15.5 % (11.5-14.5); Red Blood Cell (RBC) Count 3.74 mill/uL (4.20-5.40); White Blood Cell (WBC) Count 9.7 thou/uL (4.8-10.8)
[2021-01-04 07:21] LABS: Anion Gap 14 mmol/L (10-20); Calcium 8.6 mg/dL (7.8-10.44); Carbon Dioxide 20 mmol/L (23-31); Chloride 106 mmol/L (98-107); Sodium 136 mmol/L (136-145)
[2021-01-04 07:30] LABS: BUN (Urea Nitrogen) 16 mg/dL (9.8-20.1); Calc. Creatinine Clearance 77 mL/min (70-130); Glucose 126 mg/dL (83-110)
[2021-01-04] MEDS: Magnesium Oxide 400 MG TAB PO SCH (08:10)
[2021-01-04] MEDS: Carvedilol 6.25 MG TAB PO SCH ×2 (08:10→21:42)
[2021-01-04] MEDS: Famotidine 20 MG TAB PO SCH ×2 (08:10→21:40)
[2021-01-04] MEDS: Lisinopril 20 MG TAB PO SCH ×2 (08:11→21:50)
[2021-01-04] MEDS: Meclizine HCl 25 MG TAB PO SCH ×3 (08:11→21:50)
[2021-01-04] MEDS: Oxybutynin 5 MG TAB PO SCH ×2 (08:11→21:41)
[2021-01-04] MEDS: Famotidine/PF 20 mg/2ml Vial SLOW IVP SCH ×2 (08:11→22:04)
[2021-01-04] MEDS: Venlafaxine HCl XR 75 MG CAP PO SCH (08:11)
[2021-01-04] MEDS: Morphine 2 MG/ML VIAL SLOW IVP PRN (09:42)
[2021-01-04 16:13] LABS: #Lymphocytes 0.7 thou/uL (1.20-3.40); #Monocytes 0.5 thou/uL (0.11-0.59); %Basophils 0.2 % (0.0-1.0); %Lymphocytes 9.1 % (21.0-51.0); %Monocytes 6.3 % (0.0-10.0); %Neutrophils 84.5 % (42.0-75.0); Hemoglobin 12.2 g/dL (12.0-16.0); Mean Corpuscular HGB CONC 32.5 g/dL (32.0-36.0); Mean Corpuscular Hemoglobin 30.2 pg (27.0-31.0); Mean Corpuscular Volume 92.8 fL (78.0-98.0); Mean Platelet Volume 9.5 fL (7.4-10.4); Platelet Count 151 thou/uL (130-400); RBC Distribution Width 15.6 % (11.5-14.5); Red Blood Cell (RBC) Count 4.04 mill/uL (4.20-5.40); White Blood Cell (WBC) Count 7.1 thou/uL (4.8-10.8)
[2021-01-04] MEDS: Sodium Chloride 0.9% 1,000 ML IV SCH (21:43)
[2021-01-04] MEDS: Enoxaparin Sodium 40 MG/0.4 ML SYRINGE SC SCH (21:51)
[2021-01-05] MEDS: Ketorolac Tromethamine 30 MG/ML VIAL IVP SCH ×2 (05:48→15:57)
[2021-01-05] MEDS: Acetaminophen 500 MG TAB PO SCH ×2 (05:48→15:57)
[2021-01-05] MEDS ORDERED: Sodium Chloride 0.9% 1,000 ML IV SCH ×2 (06:15→19:00)
[2021-01-05 06:29] LABS: Hemoglobin 12.6 g/dL (12.0-16.0); Mean Corpuscular HGB CONC 32.4 g/dL (32.0-36.0); Mean Corpuscular Hemoglobin 30.1 pg (27.0-31.0); Mean Corpuscular Volume 92.8 fL (78.0-98.0); Mean Platelet Volume 10.3 fL (7.4-10.4); Platelet Count 167 thou/uL (130-400); RBC Distribution Width 15.8 % (11.5-14.5); White Blood Cell (WBC) Count 6.8 thou/uL (4.8-10.8)
[2021-01-05 06:49] LABS: Band 53 % (5-11); Lymphocytes 13 % (21-51); MDiff Complete? YES; Metamyelocyte 2 % (0-0); Monocytes 6 % (0-10); Neutrophil 24 % (42-75); Reactive Lymphocytes 2 % (0-10); Reflex for Review?? YES; Vacuoles SLIGHT
[2021-01-05] MEDS: Lactated Ringer's 1,000 ML IV SCH ×3 (07:15→20:30)
[2021-01-05] MEDS: Magnesium Oxide 400 MG TAB PO SCH ×2 (09:49→11:11)
[2021-01-05] MEDS: Lisinopril 20 MG TAB PO SCH ×2 (09:49→11:10)
[2021-01-05] MEDS: Famotidine 20 MG TAB PO SCH ×2 (09:49→11:10)
[2021-01-05] MEDS: Venlafaxine HCl XR 75 MG CAP PO SCH ×2 (09:50→11:11)
[2021-01-05] MEDS: Meclizine HCl 25 MG TAB PO SCH ×3 (09:50→15:57)
[2021-01-05] MEDS: Carvedilol 6.25 MG TAB PO SCH ×2 (09:50→21:04)
[2021-01-05] MEDS: Oxybutynin 5 MG TAB PO SCH ×2 (09:50→11:09)
[2021-01-05] MEDS: Famotidine/PF 20 mg/2ml Vial SLOW IVP SCH ×3 (09:51→21:03)
[2021-01-05] MEDS ORDERED: Iopamidol 370 76% 50 ML VIAL FS ONE (10:08)
[2021-01-05 13:32] LABS: Calcium 7.8 mg/dL (7.8-10.44); Chloride 106 mmol/L (98-107); Potassium 4.2 mmol/L (3.5-5.1); Sodium 136 mmol/L (136-145)
[2021-01-05 13:33] LABS: Glucose 93 mg/dL (83-110)
[2021-01-05 13:34] LABS: Anion Gap 16 mmol/L (10-20); Carbon Dioxide 18 mmol/L (23-31)
[2021-01-05 13:37] LABS: BUN (Urea Nitrogen) 28 mg/dL (9.8-20.1)
[2021-01-05 14:09] LABS: Calc. Creatinine Clearance 41 mL/min (70-130)
[2021-01-05] MEDS ORDERED: Lidocaine 1% w/Epinephrine 1:100K 20 ML VIAL ONE (15:59)
[2021-01-05] MEDS ORDERED: Bupivacaine PF 0.5% 30 ML VIAL ONE (15:59)
[2021-01-05] MEDS ORDERED: Meropenem 2 GM in Admixture Fee 1 EACH IVPB SCH (16:00)
[2021-01-05] MEDS ORDERED: Phenylephrine 10 MG/ML VIAL ONE (16:27)
[2021-01-05] MEDS ORDERED: Fentanyl 100 MCG/2 ML VIAL ONE (16:27)
[2021-01-05] MEDS ORDERED: HYDROmorphone 0.5 MG/0.5 ML SYRINGE ONE (16:27)
[2021-01-05] MEDS ORDERED: Meropenem 2 GM in Sodium Chloride 0.9% 100 ML IVPB SCH (16:30)
[2021-01-05] MEDS ORDERED: PROPOFOL 200 MG/20 ML VIAL ONE (16:41)
[2021-01-05] MEDS ORDERED: Glycopyrrolate 0.2 MG/ML 5 ML SYRINGE ONE (16:41)
[2021-01-05] MEDS ORDERED: Rocuronium Bromide 10 MG/ML (10ML VIAL) ONE (16:41)
[2021-01-05] MEDS ORDERED: Lidocaine 1% PF 5 ML VIAL ONE (16:41)
[2021-01-05] MEDS ORDERED: Sodium Chloride 0.9% 10 ML ONE (16:57)
[2021-01-05] MEDS ORDERED: Sodium Chloride 0.9% 20 ML ONE (17:02)
[2021-01-05] MEDS ORDERED: Morphine 4 MG/ML VIAL SLOW IVP PRN (19:00)
[2021-01-05] MEDS: Enoxaparin Sodium 40 MG/0.4 ML SYRINGE SC SCH (21:05)
[2021-01-05] MEDS: Morphine 2 MG/ML VIAL SLOW IVP PRN (23:10)
[2021-01-06] MEDS: Lactated Ringer's 1,000 ML IV SCH ×4 (00:01→18:36)
[2021-01-06] MEDS: Meropenem 2 GM in Sodium Chloride 0.9% 100 ML IVPB SCH ×3 (02:58→16:29)
[2021-01-06] MEDS: Oxybutynin 5 MG TAB PO SCH ×3 (03:11→20:22)
[2021-01-06 03:53] LABS: ALT (SGPT) 13 U/L (8-55); AST (SGOT) 23 U/L (5-34); Albumin 2.2 g/dL (3.4-4.8); Alkaline Phosphatase 35 U/L (40-110); Anion Gap 12 mmol/L (10-20); BUN (Urea Nitrogen) 32 mg/dL (9.8-20.1); Bilirubin, Total 0.7 mg/dL (0.2-1.2); Calc. Creatinine Clearance 54 mL/min (70-130); Calcium 7.7 mg/dL (7.8-10.44); Carbon Dioxide 24 mmol/L (23-31); Chloride 105 mmol/L (98-107); Globulin 2.4 g/dL (2.4-3.5); Glucose 104 mg/dL (83-110); Magnesium 1.3 mg/dL (1.6-2.6); Phosphorus 3.4 mg/dL (2.3-4.7); Potassium 4.1 mmol/L (3.5-5.1); Protein, Total 4.6 g/dL (5.8-8.1); Sodium 137 mmol/L (136-145)
[2021-01-06 04:28] LABS: Band 41 % (5-11); Hemoglobin 11.1 g/dL (12.0-16.0); Lymphocytes 11 % (21-51); MDiff Complete? YES; Mean Corpuscular HGB CONC 31.3 g/dL (32.0-36.0); Mean Corpuscular Hemoglobin 29.2 pg (27.0-31.0); Mean Corpuscular Volume 93.4 fL (78.0-98.0); Mean Platelet Volume 9.4 fL (7.4-10.4); Metamyelocyte 3 % (0-0); Monocytes 3 % (0-10); Myelocyte 1 % (0-0); Neutrophil 41 % (42-75); Platelet Count 136 thou/uL (130-400); RBC Distribution Width 15.6 % (11.5-14.5); White Blood Cell (WBC) Count 6.2 thou/uL (4.8-10.8)
[2021-01-06] MEDS: Morphine 2 MG/ML VIAL SLOW IVP PRN (04:37)
[2021-01-06] MEDS: Acetaminophen 500 MG TAB PO SCH (09:56)
[2021-01-06] MEDS: Ketorolac Tromethamine 30 MG/ML VIAL IVP SCH (09:56)
[2021-01-06] MEDS: Famotidine/PF 20 mg/2ml Vial SLOW IVP SCH ×2 (09:58→20:25)
[2021-01-06] MEDS: Magnesium Oxide 400 MG TAB PO SCH (09:58)
[2021-01-06] MEDS: Carvedilol 6.25 MG TAB PO SCH ×2 (09:58→20:22)
[2021-01-06] MEDS: Venlafaxine HCl XR 75 MG CAP PO SCH (09:58)
[2021-01-06 10:10] VITALS: BMI 31.6
[2021-01-06] MEDS ORDERED: Magnesium 2 GM/50 ML 2 GM in Premix Bag 1 BAG IVPB SCH (12:00)
[2021-01-06] MEDS: Enoxaparin Sodium 40 MG/0.4 ML SYRINGE SC SCH (20:26)
[2021-01-07] MEDS: Meropenem 2 GM in Sodium Chloride 0.9% 100 ML IVPB SCH ×3 (00:07→16:37)
[2021-01-07] MEDS: Lactated Ringer's 1,000 ML IV SCH ×4 (00:07→21:31)
[2021-01-07 05:37] LABS: Hemoglobin 9.9 g/dL (12.0-16.0); Mean Corpuscular HGB CONC 30.2 g/dL (32.0-36.0); Mean Corpuscular Hemoglobin 28.1 pg (27.0-31.0); Mean Corpuscular Volume 93.1 fL (78.0-98.0); Mean Platelet Volume 9.1 fL (7.4-10.4); Platelet Count 158 thou/uL (130-400); RBC Distribution Width 15.6 % (11.5-14.5); Red Blood Cell (RBC) Count 3.51 mill/uL (4.20-5.40)
[2021-01-07 05:55] LABS: Band 33 % (5-11); Hypochromia SLIGHT = 6-15 cells (100X) (0-5/hpf); Lymphocytes 4 % (21-51); MDiff Complete? YES; Monocytes 5 % (0-10); Neutrophil 58 % (42-75); Platelet Morphology Comment Appears Adequate
[2021-01-07 05:58] LABS: ALT (SGPT) 10 U/L (8-55); AST (SGOT) 19 U/L (5-34); Albumin 2.2 g/dL (3.4-4.8); Alkaline Phosphatase 49 U/L (40-110); Anion Gap 10 mmol/L (10-20); BUN (Urea Nitrogen) 26 mg/dL (9.8-20.1); Bilirubin, Total 0.6 mg/dL (0.2-1.2); Calc. Creatinine Clearance 84 mL/min (70-130); Calcium 7.9 mg/dL (7.8-10.44); Carbon Dioxide 28 mmol/L (23-31); Chloride 107 mmol/L (98-107); Globulin 2.6 g/dL (2.4-3.5); Glucose 86 mg/dL (83-110); Magnesium 2.1 mg/dL (1.6-2.6); Potassium 3.6 mmol/L (3.5-5.1); Protein, Total 4.8 g/dL (5.8-8.1); Sodium 141 mmol/L (136-145)
[2021-01-07] MEDS: Magnesium Oxide 400 MG TAB PO SCH (09:17)
[2021-01-07] MEDS: Oxybutynin 5 MG TAB PO SCH ×2 (09:18→21:29)
[2021-01-07] MEDS: Carvedilol 6.25 MG TAB PO SCH ×2 (09:18→21:28)
[2021-01-07] MEDS: Famotidine/PF 20 mg/2ml Vial SLOW IVP SCH ×2 (09:18→21:28)
[2021-01-07] MEDS: Venlafaxine HCl XR 75 MG CAP PO SCH (09:18)
[2021-01-07] MEDS: Enoxaparin Sodium 40 MG/0.4 ML SYRINGE SC SCH (21:28)
[2021-01-08] MEDS: Meropenem 2 GM in Sodium Chloride 0.9% 100 ML IVPB SCH ×3 (00:06→16:02)
[2021-01-08 04:17] LABS: #Eosinphils 0.3 thou/uL (0.0-0.7); #Lymphocytes 0.6 thou/uL (1.20-3.40); #Monocytes 0.9 thou/uL (0.11-0.59); #Neutrophils 7.1 thou/uL (1.40-6.50); %Basophils 0.1 % (0.0-1.0); %Eosinophils 2.8 % (0.0-10.0); %Lymphocytes 7.2 % (21.0-51.0); %Monocytes 9.6 % (0.0-10.0); %Neutrophils 80.3 % (42.0-75.0); Hemoglobin 9.5 g/dL (12.0-16.0); Mean Corpuscular HGB CONC 31.2 g/dL (32.0-36.0); Mean Corpuscular Hemoglobin 29.1 pg (27.0-31.0); Mean Corpuscular Volume 93.1 fL (78.0-98.0); Mean Platelet Volume 8.7 fL (7.4-10.4); Platelet Count 155 thou/uL (130-400); RBC Distribution Width 15.5 % (11.5-14.5); Red Blood Cell (RBC) Count 3.26 mill/uL (4.20-5.40); White Blood Cell (WBC) Count 8.9 thou/uL (4.8-10.8)
[2021-01-08 04:37] LABS: Anion Gap 11 mmol/L (10-20); BUN (Urea Nitrogen) 20 mg/dL (9.8-20.1); Calc. Creatinine Clearance 108 mL/min (70-130); Calcium 8.4 mg/dL (7.8-10.44); Carbon Dioxide 26 mmol/L (23-31); Chloride 107 mmol/L (98-107); Glucose 90 mg/dL (83-110); Potassium 3.5 mmol/L (3.5-5.1); Sodium 140 mmol/L (136-145)
[2021-01-08] MEDS: Lactated Ringer's 1,000 ML IV SCH ×2 (06:12→15:42)
[2021-01-08] MEDS: Carvedilol 6.25 MG TAB PO SCH ×2 (08:39→20:36)
[2021-01-08] MEDS: Oxybutynin 5 MG TAB PO SCH ×2 (08:40→20:37)
[2021-01-08] MEDS: Magnesium Oxide 400 MG TAB PO SCH (08:40)
[2021-01-08] MEDS: Venlafaxine HCl XR 75 MG CAP PO SCH (08:41)
[2021-01-08] MEDS: Famotidine/PF 20 mg/2ml Vial SLOW IVP SCH ×2 (08:41→20:37)
[2021-01-08] MEDS: Fluconazole In NaCl,Iso-Osm 200 MG in Premix Bag 1 BAG IVPB SCH (13:37)
[2021-01-08] MEDS: hydrALAZINE 20 MG/ML VIAL SLOW IVP PRN (16:02)
[2021-01-08] MEDS: cloNIDine 0.1 MG TAB PO PRN (17:55)
[2021-01-08] MEDS: Enoxaparin Sodium 40 MG/0.4 ML SYRINGE SC SCH (20:36)
[2021-01-09] MEDS: Meropenem 2 GM in Sodium Chloride 0.9% 100 ML IVPB SCH ×3 (00:22→15:58)
[2021-01-09] MEDS: Morphine 2 MG/ML VIAL SLOW IVP PRN ×2 (00:36→23:57)
[2021-01-09] MEDS: cloNIDine 0.1 MG TAB PO PRN (00:38)
[2021-01-09 04:37] LABS: #Eosinphils 0.1 thou/uL (0.0-0.7); #Lymphocytes 0.9 thou/uL (1.20-3.40); #Monocytes 0.9 thou/uL (0.11-0.59); #Neutrophils 5.9 thou/uL (1.40-6.50); %Basophils 0.2 % (0.0-1.0); %Lymphocytes 11.3 % (21.0-51.0); %Monocytes 11.4 % (0.0-10.0); Hemoglobin 9.9 g/dL (12.0-16.0); Mean Corpuscular HGB CONC 31.2 g/dL (32.0-36.0); Mean Corpuscular Hemoglobin 28.8 pg (27.0-31.0); Mean Corpuscular Volume 92.3 fL (78.0-98.0); Mean Platelet Volume 8.3 fL (7.4-10.4); Platelet Count 178 thou/uL (130-400); RBC Distribution Width 15.4 % (11.5-14.5); Red Blood Cell (RBC) Count 3.45 mill/uL (4.20-5.40); White Blood Cell (WBC) Count 7.7 thou/uL (4.8-10.8)
[2021-01-09] MEDS: hydrALAZINE 20 MG/ML VIAL SLOW IVP PRN (04:56)
[2021-01-09] MEDS: Lactated Ringer's 1,000 ML IV SCH ×2 (04:56→15:19)
[2021-01-09 05:01] LABS: Anion Gap 12 mmol/L (10-20); BUN (Urea Nitrogen) 16 mg/dL (9.8-20.1); Calc. Creatinine Clearance 116 mL/min (70-130); Calcium 8.7 mg/dL (7.8-10.44); Carbon Dioxide 26 mmol/L (23-31); Chloride 105 mmol/L (98-107); Glucose 101 mg/dL (83-110); Magnesium 1.7 mg/dL (1.6-2.6); Potassium 3.1 mmol/L (3.5-5.1); Sodium 140 mmol/L (136-145)
[2021-01-09] MEDS: Magnesium Oxide 400 MG TAB PO SCH (08:42)
[2021-01-09] MEDS: Famotidine/PF 20 mg/2ml Vial SLOW IVP SCH ×2 (08:42→21:16)
[2021-01-09] MEDS: Venlafaxine HCl XR 75 MG CAP PO SCH (08:42)
[2021-01-09] MEDS: Carvedilol 6.25 MG TAB PO SCH ×2 (08:43→21:16)
[2021-01-09] MEDS: Oxybutynin 5 MG TAB PO SCH ×2 (08:43→21:17)
[2021-01-09] MEDS: Fluconazole In NaCl,Iso-Osm 200 MG in Premix Bag 1 BAG IVPB SCH (12:33)
[2021-01-09] MEDS: Enoxaparin Sodium 40 MG/0.4 ML SYRINGE SC SCH (21:16)
[2021-01-10] MEDS: hydrALAZINE 20 MG/ML VIAL SLOW IVP PRN (00:01)
[2021-01-10] MEDS: Meropenem 2 GM in Sodium Chloride 0.9% 100 ML IVPB SCH ×4 (00:02→23:39)
[2021-01-10] MEDS ORDERED: Furosemide 20 MG/2 ML VIAL SLOW IVP SCH (00:45)
[2021-01-10] MEDS: Lactated Ringer's 1,000 ML IV SCH ×3 (04:06→16:52)
[2021-01-10 05:28] LABS: Hemoglobin 10.4 g/dL (12.0-16.0); Mean Corpuscular HGB CONC 31.5 g/dL (32.0-36.0); Mean Corpuscular Hemoglobin 28.8 pg (27.0-31.0); Mean Corpuscular Volume 91.2 fL (78.0-98.0); Mean Platelet Volume 8.7 fL (7.4-10.4); Platelet Count 197 thou/uL (130-400); RBC Distribution Width 15.7 % (11.5-14.5); Red Blood Cell (RBC) Count 3.61 mill/uL (4.20-5.40)
[2021-01-10 05:45] LABS: Anion Gap 14 mmol/L (10-20); BUN (Urea Nitrogen) 18 mg/dL (9.8-20.1); Calc. Creatinine Clearance 110 mL/min (70-130); Calcium 8.5 mg/dL (7.8-10.44); Carbon Dioxide 28 mmol/L (23-31); Chloride 103 mmol/L (98-107); Glucose 112 mg/dL (83-110); Magnesium 1.6 mg/dL (1.6-2.6); Sodium 142 mmol/L (136-145)
[2021-01-10 05:46] LABS: Band 39 % (5-11); Eosinophils 1 % (0-10); Lymphocytes 8 % (21-51); MDiff Complete? YES; Monocytes 7 % (0-10); Neutrophil 45 % (42-75); Platelet Morphology Comment Appears Adequate
[2021-01-10 05:54] LABS: Potassium 2.8 mmol/L (3.5-5.1)
[2021-01-10] MEDS ORDERED: Potassium Phosphate 30 MMOL in Sodium Chloride 0.9% 250 ML 250 ML IVPB SCH (06:15)
[2021-01-10] MEDS ORDERED: Magnesium 2 GM/50 ML 2 GM in Premix Bag 1 BAG IVPB SCH (06:15)
[2021-01-10] MEDS ORDERED: Magnesium Sulfate 2 GM in Sodium Chloride 0.9% 250 ML 250 ML IVPB SCH (06:15)
[2021-01-10] MEDS: Oxybutynin 5 MG TAB PO SCH ×2 (08:42→20:43)
[2021-01-10] MEDS: Magnesium Oxide 400 MG TAB PO SCH (08:42)
[2021-01-10] MEDS: Famotidine/PF 20 mg/2ml Vial SLOW IVP SCH ×2 (08:42→20:46)
[2021-01-10] MEDS: Carvedilol 6.25 MG TAB PO SCH ×2 (08:42→20:43)
[2021-01-10] MEDS: Venlafaxine HCl XR 75 MG CAP PO SCH (08:43)
[2021-01-10] MEDS: Fluconazole In NaCl,Iso-Osm 200 MG in Premix Bag 1 BAG IVPB SCH (12:29)
[2021-01-10] MEDS ORDERED: traMADol HCl 50 MG TAB PO PRN (19:09)
[2021-01-10] MEDS ORDERED: Acetaminophen 500 MG TAB PO PRN (19:09)
[2021-01-10] MEDS: Enoxaparin Sodium 40 MG/0.4 ML SYRINGE SC SCH (20:37)
[2021-01-10 22:50] LABS: Bilirubin Negative (Negative); Blood, Urine 2+ (Negative); Clarity Clear (Clear); Glucose, Urine (Dipstick) Normal (Negative); Ketone, Urine 20 mg/dL (Negative); Leukocyte Negative Leu/uL (Negative); Nitrite Negative (Negative); Protein, Urine (Dipstick) 100 mg/dL (Neg-Trace); Renal Epithelial 0-3 HPF (None Seen); Specific Gravity, Urine 1.028 (1.002-1.036)
[2021-01-10 22:59] LABS: Bacteria/HPF Rare-Few HPF (None Seen); WBC/HPF 0-3 HPF (0-3)
[2021-01-10 23:01] LABS: Urine Culture Reflex No No
[2021-01-11] MEDS: Lactated Ringer's 1,000 ML IV SCH ×3 (02:57→18:20)
[2021-01-11 04:44] LABS: #Eosinphils 0.1 thou/uL (0.0-0.7); #Lymphocytes 0.8 thou/uL (1.20-3.40); #Monocytes 0.6 thou/uL (0.11-0.59); #Neutrophils 7.6 thou/uL (1.40-6.50); %Basophils 0.1 % (0.0-1.0); %Eosinophils 1.4 % (0.0-10.0); %Lymphocytes 8.9 % (21.0-51.0); %Monocytes 6.6 % (0.0-10.0); %Neutrophils 82.9 % (42.0-75.0); Hemoglobin 9.9 g/dL (12.0-16.0); Mean Corpuscular HGB CONC 32.4 g/dL (32.0-36.0); Mean Corpuscular Hemoglobin 29.8 pg (27.0-31.0); Mean Corpuscular Volume 91.9 fL (78.0-98.0); Mean Platelet Volume 8.6 fL (7.4-10.4); Platelet Count 192 thou/uL (130-400); RBC Distribution Width 15.8 % (11.5-14.5); Red Blood Cell (RBC) Count 3.32 mill/uL (4.20-5.40); White Blood Cell (WBC) Count 9.1 thou/uL (4.8-10.8)
[2021-01-11 05:10] LABS: Anion Gap 10 mmol/L (10-20); BUN (Urea Nitrogen) 18 mg/dL (9.8-20.1); Calc. Creatinine Clearance 120 mL/min (70-130); Calcium 8.4 mg/dL (7.8-10.44); Carbon Dioxide 32 mmol/L (23-31); Chloride 102 mmol/L (98-107); Glucose 110 mg/dL (83-110); Sodium 141 mmol/L (136-145)
[2021-01-11] MEDS: Venlafaxine HCl XR 75 MG CAP PO SCH (08:16)
[2021-01-11] MEDS: Carvedilol 6.25 MG TAB PO SCH ×2 (08:16→20:53)
[2021-01-11] MEDS: Oxybutynin 5 MG TAB PO SCH ×2 (08:16→20:53)
[2021-01-11] MEDS: Magnesium Oxide 400 MG TAB PO SCH (08:16)
[2021-01-11] MEDS: Famotidine/PF 20 mg/2ml Vial SLOW IVP SCH (08:17)
[2021-01-11] MEDS: Meropenem 2 GM in Sodium Chloride 0.9% 100 ML IVPB SCH ×2 (08:21→15:47)
[2021-01-11] MEDS ORDERED: Potassium Chloride 20 MEQ TAB PO SCH ×2 (09:00→17:45)
[2021-01-11] MEDS: Fluconazole In NaCl,Iso-Osm 200 MG in Premix Bag 1 BAG IVPB SCH (13:30)
[2021-01-11] MEDS: Enoxaparin Sodium 40 MG/0.4 ML SYRINGE SC SCH (20:53)
[2021-01-12 07:12] LABS: Anion Gap 8 mmol/L (10-20); BUN (Urea Nitrogen) 19 mg/dL (9.8-20.1); Calc. Creatinine Clearance 112 mL/min (70-130); Calcium 8.7 mg/dL (7.8-10.44); Carbon Dioxide 36 mmol/L (23-31); Chloride 100 mmol/L (98-107); Glucose 116 mg/dL (83-110); Potassium 3.5 mmol/L (3.5-5.1); Sodium 140 mmol/L (136-145)
[2021-01-12] MEDS: Venlafaxine HCl XR 75 MG CAP PO SCH (08:39)
[2021-01-12] MEDS: Carvedilol 6.25 MG TAB PO SCH ×2 (08:40→20:07)
[2021-01-12] MEDS: Magnesium Oxide 400 MG TAB PO SCH (08:40)
[2021-01-12] MEDS: Oxybutynin 5 MG TAB PO SCH ×2 (08:40→20:07)
[2021-01-12] MEDS ORDERED: Atorvastatin Calcium 40 MG TAB PO SCH (09:00)
[2021-01-12] MEDS ORDERED: Allopurinol 300 MG TAB PO SCH (09:00)
[2021-01-12] MEDS ORDERED: Prenatal Vitamin 1 TAB PO SCH (09:00)
[2021-01-12] MEDS ORDERED: [UNRECOGNIZED DRUG - OTHER] PO SCH (09:00)
[2021-01-12] MEDS ORDERED: Cholecalciferol 1,000 UNITS (25 MCG) TAB PO SCH (09:00)
[2021-01-12] MEDS ORDERED: Calcium Carbonate 600 MG + Vit D TAB PO SCH (09:00)
[2021-01-12] MEDS ORDERED: Cyanocobalamin (Vitamin B-12) 1,000 MCG TAB PO SCH (09:00)
[2021-01-12 10:59] LABS: #Eosinphils 0.1 thou/uL (0.0-0.7); #Lymphocytes 0.9 thou/uL (1.20-3.40); #Monocytes 0.5 thou/uL (0.11-0.59); %Basophils 0.1 % (0.0-1.0); %Eosinophils 1.2 % (0.0-10.0); %Lymphocytes 7.6 % (21.0-51.0); %Monocytes 4.6 % (0.0-10.0); %Neutrophils 86.5 % (42.0-75.0); Mean Corpuscular HGB CONC 31.8 g/dL (32.0-36.0); Mean Corpuscular Hemoglobin 29.1 pg (27.0-31.0); Mean Corpuscular Volume 91.4 fL (78.0-98.0); Mean Platelet Volume 8.7 fL (7.4-10.4); Platelet Count 220 thou/uL (130-400); RBC Distribution Width 15.8 % (11.5-14.5); Red Blood Cell (RBC) Count 3.78 mill/uL (4.20-5.40); White Blood Cell (WBC) Count 11.5 thou/uL (4.8-10.8)
[2021-01-12] MEDS: Lactated Ringer's 1,000 ML IV SCH ×3 (11:11→20:08)
[2021-01-12 11:20] LABS: ALT (SGPT) 9 U/L (8-55); AST (SGOT) 20 U/L (5-34); Albumin 2.2 g/dL (3.4-4.8); Alkaline Phosphatase 66 U/L (40-110); Anion Gap 12 mmol/L (10-20); BUN (Urea Nitrogen) 19 mg/dL (9.8-20.1); Bilirubin, Total 0.6 mg/dL (0.2-1.2); Calc. Creatinine Clearance 112 mL/min (70-130); Calcium 8.9 mg/dL (7.8-10.44); Carbon Dioxide 33 mmol/L (23-31); Chloride 102 mmol/L (98-107); Globulin 3.1 g/dL (2.4-3.5); Glucose 121 mg/dL (83-110); Potassium 3.7 mmol/L (3.5-5.1); Protein, Total 5.3 g/dL (5.8-8.1); Sodium 143 mmol/L (136-145)
[2021-01-12] MEDS: Fluconazole In NaCl,Iso-Osm 200 MG in Premix Bag 1 BAG IVPB SCH (13:30)
[2021-01-12] MEDS: Enoxaparin Sodium 40 MG/0.4 ML SYRINGE SC SCH (20:07)
[2021-01-13] MEDS: Lactated Ringer's 1,000 ML IV SCH ×2 (03:47→19:05)
[2021-01-13] MEDS: hydrALAZINE 20 MG/ML VIAL SLOW IVP PRN (03:48)
[2021-01-13] MEDS: Pantoprazole 40 MG VIAL IVP SCH (09:11)
[2021-01-13] MEDS: Magnesium Oxide 400 MG TAB PO SCH (09:11)
[2021-01-13] MEDS: Venlafaxine HCl XR 75 MG CAP PO SCH (09:11)
[2021-01-13] MEDS: Oxybutynin 5 MG TAB PO SCH (09:11)
[2021-01-13] MEDS: Carvedilol 6.25 MG TAB PO SCH (09:11)
[2021-01-13] MEDS: Morphine 2 MG/ML VIAL SLOW IVP PRN (09:17)
[2021-01-13 10:39] LABS: #Eosinphils 0.1 thou/uL (0.0-0.7); #Lymphocytes 0.8 thou/uL (1.20-3.40); #Monocytes 0.5 thou/uL (0.11-0.59); #Neutrophils 8.4 thou/uL (1.40-6.50); %Basophils 0.2 % (0.0-1.0); %Eosinophils 0.9 % (0.0-10.0); %Lymphocytes 7.7 % (21.0-51.0); %Monocytes 5.4 % (0.0-10.0); %Neutrophils 85.9 % (42.0-75.0); Hemoglobin 9.7 g/dL (12.0-16.0); Mean Corpuscular HGB CONC 31.4 g/dL (32.0-36.0); Mean Corpuscular Hemoglobin 29.1 pg (27.0-31.0); Mean Corpuscular Volume 92.7 fL (78.0-98.0); Mean Platelet Volume 8.6 fL (7.4-10.4); Platelet Count 215 thou/uL (130-400); RBC Distribution Width 15.7 % (11.5-14.5); Red Blood Cell (RBC) Count 3.35 mill/uL (4.20-5.40); White Blood Cell (WBC) Count 9.7 thou/uL (4.8-10.8)
[2021-01-13] MEDS ORDERED: Fentanyl 250 MCG/5 ML VIAL ONE (10:41)
[2021-01-13] MEDS ORDERED: Piperacillin/Tazobactam 3.375 GM VIAL ONE (10:51)
[2021-01-13] MEDS ORDERED: Sodium Chloride 0.9% 100 ML ONE ×2 (10:51→10:54)
[2021-01-13] MEDS ORDERED: Piperacillin/Tazobactam 3.375 GM in Sodium Chloride 0.9% 100 ML IVPB SCH (11:00)
[2021-01-13] MEDS ORDERED: Ketamine 50 MG/ML (10ML VIAL) ONE (11:01)
[2021-01-13 11:05] LABS: ALT (SGPT) 10 U/L (8-55); AST (SGOT) 20 U/L (5-34); Albumin 1.9 g/dL (3.4-4.8); Alkaline Phosphatase 59 U/L (40-110); Anion Gap 8 mmol/L (10-20); BUN (Urea Nitrogen) 15 mg/dL (9.8-20.1); Bilirubin, Total 0.5 mg/dL (0.2-1.2); Calc. Creatinine Clearance 120 mL/min (70-130); Calcium 8.3 mg/dL (7.8-10.44); Carbon Dioxide 34 mmol/L (23-31); Chloride 102 mmol/L (98-107); Globulin 2.8 g/dL (2.4-3.5); Glucose 95 mg/dL (83-110); Potassium 3.4 mmol/L (3.5-5.1); Protein, Total 4.7 g/dL (5.8-8.1); Sodium 141 mmol/L (136-145)
[2021-01-13] MEDS ORDERED: Glycopyrrolate 0.2 MG/ML 5 ML SYRINGE ONE (11:07)
[2021-01-13] MEDS ORDERED: PHENYLEPHRINE-NS 100 MCG/ML 10 ML SYRINGE ONE (11:07)
[2021-01-13] MEDS ORDERED: Rocuronium Bromide 10 MG/ML (10ML VIAL) ONE (11:07)
[2021-01-13] MEDS ORDERED: PROPOFOL 200 MG/20 ML VIAL ONE (11:07)
[2021-01-13] MEDS ORDERED: Succinylcholine 200 MG/10 ml SYRINGE FS ONE (11:07)
[2021-01-13] MEDS ORDERED: Vecuronium 10 MG VIAL ONE (11:07)
[2021-01-13] MEDS ORDERED: Lidocaine 1% PF 5 ML VIAL ONE (11:07)
[2021-01-13] MEDS ORDERED: Norepinephrine 4 MG/4 ML VIAL ONE ×2 (11:37→12:06)
[2021-01-13] MEDS: Piperacillin/Tazobactam 4.5 GM in Sodium Chloride 0.9% 100 ML IVPB SCH ×2 (12:05→19:25)
[2021-01-13] MEDS ORDERED: Phenylephrine 10 MG/ML VIAL ONE (12:56)
[2021-01-13 13:15] LABS: #Eosinphils 0.1 thou/uL (0.0-0.7); #Lymphocytes 1.3 thou/uL (1.20-3.40); #Monocytes 0.9 thou/uL (0.11-0.59); %Basophils 0.1 % (0.0-1.0); %Eosinophils 0.7 % (0.0-10.0); %Lymphocytes 7.3 % (21.0-51.0); %Monocytes 4.9 % (0.0-10.0); %Neutrophils 87.1 % (42.0-75.0); Hemoglobin 9.1 g/dL (12.0-16.0); Mean Corpuscular HGB CONC 31.3 g/dL (32.0-36.0); Mean Corpuscular Volume 92.9 fL (78.0-98.0); Mean Platelet Volume 8.4 fL (7.4-10.4); Platelet Count 298 thou/uL (130-400); RBC Distribution Width 15.8 % (11.5-14.5); Red Blood Cell (RBC) Count 3.12 mill/uL (4.20-5.40); White Blood Cell (WBC) Count 18.3 thou/uL (4.8-10.8)
[2021-01-13] MEDS ORDERED: Ventilator Sedation Protocol 1 EACH FS SCH (14:00)
[2021-01-13] MEDS ORDERED: Lactated Ringer's 1,000 ML IV SCH (14:00)
[2021-01-13] MEDS ORDERED: Propofol BOLUS 1,000 MG/100 ML VIAL IV PRN (14:15)
[2021-01-13] MEDS ORDERED: Morphine 2 MG/ML VIAL SLOW IVP PRN (14:15)
[2021-01-13] MEDS ORDERED: Lorazepam 2 MG/ML VIAL SLOW IVP PRN (14:15)
[2021-01-13] MEDS ORDERED: Propofol 1,000 MG/100 ML VIAL IV PRN (14:15)
[2021-01-13] MEDS ORDERED: Fentanyl BOLUS 250 ML IVPB PRN (14:15)
[2021-01-13] MEDS ORDERED: Ondansetron HCl/PF 4 MG/2 ML Vial IVP PRN (14:16)
[2021-01-13] MEDS ORDERED: Ventilator Sedation Protocol 1 EACH FS ONE (14:21)
[2021-01-13] MEDS ORDERED: Norepinephrine 8 MG/0.9% NS 250 ML IVPB SCH (14:30)
[2021-01-13 15:46] LABS: Actual Bicarbonate (HCO3a) 26.7 mEq/L (22-28); Base Excess (BEa) 4.7 mEq/L (-2.0 to +3.0); CO2 Tension 30.9 mmHg (35.0-45.0); Calcium, Ionized (arterial) 1.19 mmol/L (1.12-1.30); Hemoglobin (Hb) 10.5 g/dL (12.0-16.0); O2 Tension (PaO2), arterial 91.5 mmHg (> 70.0); Potassium - ABG Lab 3.39 mmol/L (3.70-5.30)
[2021-01-13] MEDS: Albuterol Sulfate 2.5 mg/3 ml Neb NEB SCH ×3 (15:49→22:43)
[2021-01-13 15:55] LABS: ALV-art Gradient 155.075 mmHg (0-20); pH, Arterial 7.56 (7.35-7.45)
[2021-01-13] MEDS ORDERED: Fentanyl 100 MCG/2 ML VIAL ONE (18:25)
[2021-01-13] MEDS: Fluconazole In NaCl,Iso-Osm 200 MG in Premix Bag 1 BAG IVPB SCH (19:20)
[2021-01-13] MEDS: Albumin 25% 25 GM/100 ML BOT IVPB SCH (19:33)
[2021-01-13 19:37] LABS: Band 54 % (5-11); Hypochromia SLIGHT = 6-15 cells (100X) (0-5/hpf); Lymphocytes 5 % (21-51); MDiff Complete? YES; Mean Corpuscular HGB CONC 31.6 g/dL (32.0-36.0); Mean Corpuscular Hemoglobin 29.3 pg (27.0-31.0); Mean Corpuscular Volume 92.7 fL (78.0-98.0); Mean Platelet Volume 8.5 fL (7.4-10.4); Monocytes 4 % (0-10); Neutrophil 37 % (42-75); Platelet Count 326 thou/uL (130-400); Platelet Morphology Comment Appears Adequate; Polychromasia SLIGHT = 2-3 cells (100X) (0-2/hpf); RBC Distribution Width 15.9 % (11.5-14.5); Red Blood Cell (RBC) Count 3.77 mill/uL (4.20-5.40); White Blood Cell (WBC) Count 29.2 thou/uL (4.8-10.8)
[2021-01-13] MEDS ORDERED: Fentanyl CADD 100 ML ONE (20:33)
[2021-01-13] MEDS: Fentanyl CADD 100 ML IV SCH (21:23)
[2021-01-14] MEDS: Albumin 25% 25 GM/100 ML BOT IVPB SCH ×5 (00:26→23:59)
[2021-01-14] MEDS: Piperacillin/Tazobactam 4.5 GM in Sodium Chloride 0.9% 100 ML IVPB SCH ×5 (00:26→23:59)
[2021-01-14] MEDS: Carvedilol 6.25 MG TAB PO SCH ×3 (00:43→20:42)
[2021-01-14] MEDS: Enoxaparin Sodium 40 MG/0.4 ML SYRINGE SC SCH ×2 (00:43→20:43)
[2021-01-14] MEDS ORDERED: Lactated Ringer's 1,000 ML IV PRN (01:46)
[2021-01-14] MEDS: Albuterol Sulfate 2.5 mg/3 ml Neb NEB SCH ×6 (03:19→22:44)
[2021-01-14 04:16] LABS: #Basophils 0.2 thou/uL (0.0-0.2); #Lymphocytes 0.7 thou/uL (1.20-3.40); #Monocytes 0.5 thou/uL (0.11-0.59); #Neutrophils 12.4 thou/uL (1.40-6.50); %Basophils 1.4 % (0.0-1.0); %Eosinophils 0.1 % (0.0-10.0); %Lymphocytes 5.2 % (21.0-51.0); %Monocytes 3.8 % (0.0-10.0); %Neutrophils 89.5 % (42.0-75.0); Hemoglobin 8.4 g/dL (12.0-16.0); Mean Corpuscular HGB CONC 31.5 g/dL (32.0-36.0); Mean Corpuscular Hemoglobin 29.2 pg (27.0-31.0); Mean Corpuscular Volume 92.6 fL (78.0-98.0); Mean Platelet Volume 8.5 fL (7.4-10.4); Platelet Count 201 thou/uL (130-400); RBC Distribution Width 15.9 % (11.5-14.5); Red Blood Cell (RBC) Count 2.86 mill/uL (4.20-5.40); White Blood Cell (WBC) Count 13.8 thou/uL (4.8-10.8)
[2021-01-14 04:41] LABS: Anion Gap 15 mmol/L (10-20); BUN (Urea Nitrogen) 20 mg/dL (9.8-20.1); Calc. Creatinine Clearance 96 mL/min (70-130); Calcium 7.8 mg/dL (7.8-10.44); Carbon Dioxide 26 mmol/L (23-31); Chloride 104 mmol/L (98-107); Glucose 120 mg/dL (83-110); Magnesium 1.8 mg/dL (1.6-2.6); Phosphorus 4.1 mg/dL (2.3-4.7); Potassium 3.8 mmol/L (3.5-5.1); Sodium 141 mmol/L (136-145)
[2021-01-14] MEDS: Lactated Ringer's 1,000 ML IV SCH ×4 (06:19→14:28)
[2021-01-14] MEDS: Pantoprazole 40 MG VIAL IVP SCH (08:08)
[2021-01-14 08:27] LABS: Base Excess (BEa) 1.9 mEq/L (-2.0 to +3.0); CO2 Tension 44.7 mmHg (35.0-45.0); Calcium, Ionized (arterial) 1.17 mmol/L (1.12-1.30); Carboxyhemoglobin (COHb) 0.3 gm% (0.0-3.0); Hemoglobin (Hb) 8.2 g/dL (12.0-16.0); O2 Tension (PaO2), arterial 81.2 mmHg (> 70.0); Potassium - ABG Lab 3.64 mmol/L (3.70-5.30)
[2021-01-14 08:32] LABS: ALV-art Gradient 148.125 mmHg (0-20); Puncture Site RRA
[2021-01-14] MEDS: Venlafaxine HCl XR 75 MG CAP PO SCH (08:44)
[2021-01-14] MEDS: Magnesium Oxide 400 MG TAB PO SCH (08:44)
[2021-01-14] MEDS ORDERED: Fentanyl 100 MCG/2 ML VIAL ONE ×2 (10:15→12:02)
[2021-01-14] MEDS ORDERED: Ondansetron PF 4 MG/2 ML Vial ONE (12:39)
[2021-01-14] MEDS ORDERED: Rocuronium Bromide 10 MG/ML (10ML VIAL) ONE (12:39)
[2021-01-14] MEDS ORDERED: Dextrose 50% Abboject 50 ML SYRINGE SLOW IVP PRN (14:06)
[2021-01-14] MEDS ORDERED: Dextrose 5% in Water 1,000 ML IV PRN (14:06)
[2021-01-14] MEDS ORDERED: Lactated Ringer's 1,000 ML IV SCH (14:15)
[2021-01-14] MEDS ORDERED: Fentanyl CADD 100 ML ONE (14:16)
[2021-01-14] MEDS: Fluconazole In NaCl,Iso-Osm 200 MG in Premix Bag 1 BAG IVPB SCH (14:46)
[2021-01-14] MEDS: Sodium Chloride 0.9% 1,000 ML IV SCH (14:47)
[2021-01-14] MEDS ORDERED: Sodium Chloride 0.9% 1,000 ML IV SCH (17:30)
[2021-01-14 18:28] LABS: #Lymphocytes 0.7 thou/uL (1.20-3.40); #Monocytes 0.6 thou/uL (0.11-0.59); #Neutrophils 8.6 thou/uL (1.40-6.50); %Basophils 0.1 % (0.0-1.0); %Eosinophils 0.2 % (0.0-10.0); %Lymphocytes 7.1 % (21.0-51.0); %Monocytes 5.9 % (0.0-10.0); %Neutrophils 86.8 % (42.0-75.0); Hemoglobin 7.2 g/dL (12.0-16.0); Mean Corpuscular Hemoglobin 29.9 pg (27.0-31.0); Mean Corpuscular Volume 93.5 fL (78.0-98.0); Mean Platelet Volume 8.8 fL (7.4-10.4); Platelet Count 151 thou/uL (130-400); RBC Distribution Width 15.9 % (11.5-14.5); Red Blood Cell (RBC) Count 2.42 mill/uL (4.20-5.40); White Blood Cell (WBC) Count 9.9 thou/uL (4.8-10.8)
[2021-01-14 18:35] LABS: INR-International Normal Ratio 2.2; PTT 42.8 sec (22.9-36.1); Prothrombin Time 24.7 sec (12.0-14.7)
[2021-01-14 18:48] LABS: ALT (SGPT) 8 U/L (8-55); AST (SGOT) 15 U/L (5-34); Albumin 2.6 g/dL (3.4-4.8); Alkaline Phosphatase 28 U/L (40-110); Anion Gap 9 mmol/L (10-20); BUN (Urea Nitrogen) 21 mg/dL (9.8-20.1); Bilirubin, Total 0.9 mg/dL (0.2-1.2); Calc. Creatinine Clearance 96 mL/min (70-130); Calcium 7.5 mg/dL (7.8-10.44); Carbon Dioxide 30 mmol/L (23-31); Cardiac Risk 3.4 (Less than 4.5); Chloride 108 mmol/L (98-107); Cholesterol 34 mg/dl (< 200 Desired); Globulin 1.5 g/dL (2.4-3.5); Glucose 116 mg/dL (83-110); HDL Cholesterol 10 mg/dL (>60 Neg Risk); LDL Cholesterol, Calculated 14 mg/dL; Magnesium 1.7 mg/dL (1.6-2.6); Phosphorus 3.4 mg/dL (2.3-4.7); Potassium 3.7 mmol/L (3.5-5.1); Protein, Total 4.1 g/dL (5.8-8.1); Sodium 143 mmol/L (136-145); Triglycerides 52 mg/dL (Less than 150)
[2021-01-14] MEDS: [UNRECOGNIZED DRUG - REMARK] IV SCH (22:09)
[2021-01-15] MEDS: Lactated Ringer's 1,000 ML IV SCH ×3 (00:20→12:58)
[2021-01-15] MEDS: Albuterol Sulfate 2.5 mg/3 ml Neb NEB SCH ×6 (02:47→23:08)
[2021-01-15] MEDS ORDERED: Fentanyl CADD 100 ML ONE ×2 (03:05→15:39)
[2021-01-15] MEDS: Fentanyl CADD 100 ML IV SCH ×2 (03:12→15:45)
[2021-01-15 04:29] LABS: #Lymphocytes 0.6 thou/uL (1.20-3.40); #Monocytes 0.4 thou/uL (0.11-0.59); #Neutrophils 7.1 thou/uL (1.40-6.50); %Eosinophils 0.2 % (0.0-10.0); %Lymphocytes 7.3 % (21.0-51.0); %Monocytes 4.7 % (0.0-10.0); %Neutrophils 87.8 % (42.0-75.0); Hemoglobin 6.6 g/dL (12.0-16.0); Mean Corpuscular HGB CONC 31.5 g/dL (32.0-36.0); Mean Corpuscular Hemoglobin 29.4 pg (27.0-31.0); Mean Corpuscular Volume 93.2 fL (78.0-98.0); Mean Platelet Volume 8.8 fL (7.4-10.4); Platelet Count 147 thou/uL (130-400); RBC Distribution Width 15.8 % (11.5-14.5); Red Blood Cell (RBC) Count 2.26 mill/uL (4.20-5.40); White Blood Cell (WBC) Count 8.1 thou/uL (4.8-10.8)
[2021-01-15 04:47] LABS: Anion Gap 9 mmol/L (10-20); BUN (Urea Nitrogen) 24 mg/dL (9.8-20.1); Calc. Creatinine Clearance 85 mL/min (70-130); Calcium 7.3 mg/dL (7.8-10.44); Carbon Dioxide 28 mmol/L (23-31); Chloride 107 mmol/L (98-107); Glucose 205 mg/dL (83-110); Sodium 141 mmol/L (136-145)
[2021-01-15] MEDS: Piperacillin/Tazobactam 4.5 GM in Sodium Chloride 0.9% 100 ML IVPB SCH ×3 (05:09→17:35)
[2021-01-15] MEDS: HumaLOG 300 UNITS/3 ML VIAL SC PRN ×2 (05:09→10:20)
[2021-01-15] MEDS: Albumin 25% 25 GM/100 ML BOT IVPB SCH ×3 (05:09→17:35)
[2021-01-15 07:40] LABS: Base Excess (BEa) 1.1 mEq/L (-2.0 to +3.0); CO2 Tension 50.2 mmHg (35.0-45.0); Calcium, Ionized (arterial) 1.11 mmol/L (1.12-1.30); Carboxyhemoglobin (COHb) 0.3 gm% (0.0-3.0); Hemoglobin (Hb) 7.5 g/dL (12.0-16.0); O2 Tension (PaO2), arterial 89.8 mmHg (> 70.0); Potassium - ABG Lab 3.01 mmol/L (3.70-5.30); pH, Arterial 7.35 (7.35-7.45)
[2021-01-15 07:41] LABS: Puncture Site RRA
[2021-01-15] MEDS: Venlafaxine HCl XR 75 MG CAP PO SCH (08:25)
[2021-01-15] MEDS: Magnesium Oxide 400 MG TAB PO SCH (08:25)
[2021-01-15] MEDS: Pantoprazole 40 MG VIAL IVP SCH (08:25)
[2021-01-15] MEDS: Carvedilol 6.25 MG TAB PO SCH ×2 (08:26→20:56)
[2021-01-15] MEDS ORDERED: Electrolyte Replacement Protocol FS PRN (11:00)
[2021-01-15] MEDS ORDERED: Potassium Chloride 40 MEQ in Premix Bag 1 BAG IVPB SCH (11:30)
[2021-01-15] MEDS: Fluconazole In NaCl,Iso-Osm 200 MG in Premix Bag 1 BAG IVPB SCH (15:31)
[2021-01-15 18:31] LABS: Potassium 3.3 mmol/L (3.5-5.1)
[2021-01-15] MEDS: Enoxaparin Sodium 40 MG/0.4 ML SYRINGE SC SCH (20:56)
[2021-01-15] MEDS: [UNRECOGNIZED DRUG - REMARK] IV SCH (22:40)
[2021-01-16] MEDS: Piperacillin/Tazobactam 4.5 GM in Sodium Chloride 0.9% 100 ML IVPB SCH ×5 (00:08→23:38)
[2021-01-16] MEDS: Albuterol Sulfate 2.5 mg/3 ml Neb NEB SCH ×6 (03:38→23:13)
[2021-01-16 04:39] LABS: Anion Gap 9 mmol/L (10-20); BUN (Urea Nitrogen) 33 mg/dL (9.8-20.1); Calc. Creatinine Clearance 79 mL/min (70-130); Calcium 7.5 mg/dL (7.8-10.44); Carbon Dioxide 26 mmol/L (23-31); Chloride 106 mmol/L (98-107); Glucose 152 mg/dL (83-110); Sodium 138 mmol/L (136-145)
[2021-01-16 05:00] LABS: Hemoglobin 8.5 g/dL (12.0-16.0); Mean Corpuscular HGB CONC 32.6 g/dL (32.0-36.0); Mean Corpuscular Hemoglobin 30.7 pg (27.0-31.0); Mean Corpuscular Volume 94.4 fL (78.0-98.0); Mean Platelet Volume 8.8 fL (7.4-10.4); Platelet Count 166 thou/uL (130-400); RBC Distribution Width 15.9 % (11.5-14.5); Red Blood Cell (RBC) Count 2.78 mill/uL (4.20-5.40); White Blood Cell (WBC) Count 9.1 thou/uL (4.8-10.8)
[2021-01-16 05:04] LABS: Potassium 2.9 mmol/L (3.5-5.1)
[2021-01-16] MEDS ORDERED: Fentanyl CADD 100 ML ONE ×2 (05:08→16:56)
[2021-01-16] MEDS: Fentanyl CADD 100 ML IV SCH (05:11)
[2021-01-16 05:12] LABS: Band 8 % (5-11); Eosinophils 2 % (0-10); Lymphocytes 4 % (21-51); MDiff Complete? YES; Monocytes 4 % (0-10); Neutrophil 82 % (42-75)
[2021-01-16] MEDS: Potassium Chloride 40 MEQ in Premix Bag 1 BAG IVPB SCH ×2 (06:14→09:30)
[2021-01-16] MEDS: Lactated Ringer's 1,000 ML IV SCH ×3 (06:14→09:43)
[2021-01-16 08:19] LABS: Actual Bicarbonate (HCO3a) 25.9 mEq/L (22-28); Base Excess (BEa) -1.3 mEq/L (-2.0 to +3.0); CO2 Tension 56.5 mmHg (35.0-45.0); Calcium, Ionized (arterial) 1.17 mmol/L (1.12-1.30); Carboxyhemoglobin (COHb) 0.2 gm% (0.0-3.0); Hemoglobin (Hb) 9.5 g/dL (12.0-16.0); Potassium - ABG Lab 3.82 mmol/L (3.70-5.30); pH, Arterial 7.28 (7.35-7.45)
[2021-01-16 08:29] LABS: ALV-art Gradient 119.575 mmHg (0-20); Puncture Site RRA
[2021-01-16] MEDS: Carvedilol 6.25 MG TAB PO SCH ×2 (09:41→21:01)
[2021-01-16] MEDS: Magnesium Oxide 400 MG TAB PO SCH (09:42)
[2021-01-16] MEDS: Pantoprazole 40 MG VIAL IVP SCH (09:42)
[2021-01-16] MEDS: Venlafaxine HCl XR 75 MG CAP PO SCH (09:42)
[2021-01-16 12:51] LABS: Potassium 3.8 mmol/L (3.5-5.1)
[2021-01-16] MEDS ORDERED: Lactated Ringer's 1,000 ML IV SCH (13:29)
[2021-01-16] MEDS ORDERED: Furosemide 100 MG/10 ML VIAL SLOW IVP SCH (13:45)
[2021-01-16] MEDS: Enoxaparin Sodium 40 MG/0.4 ML SYRINGE SC SCH (21:01)
[2021-01-16] MEDS: [UNRECOGNIZED DRUG - REMARK] IV SCH (22:46)
[2021-01-17] MEDS: Albuterol Sulfate 2.5 mg/3 ml Neb NEB SCH ×6 (02:30→23:39)
[2021-01-17 05:09] LABS: Anion Gap 7 mmol/L (10-20); BUN (Urea Nitrogen) 35 mg/dL (9.8-20.1); Calc. Creatinine Clearance 74 mL/min (70-130); Calcium 7.9 mg/dL (7.8-10.44); Carbon Dioxide 29 mmol/L (23-31); Chloride 106 mmol/L (98-107); Glucose 139 mg/dL (83-110); Sodium 139 mmol/L (136-145)
[2021-01-17 05:11] LABS: Band 20 % (5-11); Eosinophils 5 % (0-10); Hemoglobin 8.9 g/dL (12.0-16.0); Lymphocytes 9 % (21-51); MDiff Complete? YES; Mean Corpuscular HGB CONC 32.6 g/dL (32.0-36.0); Mean Corpuscular Hemoglobin 30.5 pg (27.0-31.0); Mean Corpuscular Volume 93.6 fL (78.0-98.0); Mean Platelet Volume 8.8 fL (7.4-10.4); Monocytes 7 % (0-10); Neutrophil 59 % (42-75); Platelet Count 208 thou/uL (130-400); RBC Distribution Width 15.7 % (11.5-14.5); Red Blood Cell (RBC) Count 2.92 mill/uL (4.20-5.40); White Blood Cell (WBC) Count 9.1 thou/uL (4.8-10.8)
[2021-01-17] MEDS ORDERED: Fentanyl CADD 100 ML ONE (05:22)
[2021-01-17] MEDS: Fentanyl CADD 100 ML IV SCH ×2 (05:24→17:07)
[2021-01-17] MEDS ORDERED: Potassium Chloride 40 MEQ in Premix Bag 1 BAG IVPB SCH ×2 (05:30→21:45)
[2021-01-17] MEDS: Piperacillin/Tazobactam 4.5 GM in Sodium Chloride 0.9% 100 ML IVPB SCH ×3 (05:37→17:14)
[2021-01-17 07:24] LABS: Base Excess (BEa) -0.7 mEq/L (-2.0 to +3.0); CO2 Tension 39.4 mmHg (35.0-45.0); Calcium, Ionized (arterial) 1.18 mmol/L (1.12-1.30); Carboxyhemoglobin (COHb) 0.2 gm% (0.0-3.0); Hemoglobin (Hb) 9.5 g/dL (12.0-16.0); O2 Tension (PaO2), arterial 80.1 mmHg (> 70.0); Potassium - ABG Lab 3.82 mmol/L (3.70-5.30)
[2021-01-17 07:31] LABS: Puncture Site LRA
[2021-01-17] MEDS: hydrALAZINE 20 MG/ML VIAL SLOW IVP PRN (09:06)
[2021-01-17] MEDS: Carvedilol 6.25 MG TAB PO SCH ×2 (09:20→21:17)
[2021-01-17] MEDS: Magnesium Oxide 400 MG TAB PO SCH (09:20)
[2021-01-17] MEDS: Pantoprazole 40 MG VIAL IVP SCH (09:20)
[2021-01-17] MEDS: Venlafaxine HCl XR 75 MG CAP PO SCH (09:21)
[2021-01-17] MEDS: HumaLOG 300 UNITS/3 ML VIAL SC PRN ×2 (15:46→22:22)
[2021-01-17 19:19] LABS: Potassium 3.2 mmol/L (3.5-5.1)
[2021-01-17] MEDS: Enoxaparin Sodium 40 MG/0.4 ML SYRINGE SC SCH (21:17)
[2021-01-17] MEDS: [UNRECOGNIZED DRUG - REMARK] IV SCH (21:54)
[2021-01-18] MEDS: Piperacillin/Tazobactam 4.5 GM in Sodium Chloride 0.9% 100 ML IVPB SCH ×5 (00:03→23:00)
[2021-01-18] MEDS: Albuterol Sulfate 2.5 mg/3 ml Neb NEB SCH ×3 (03:52→10:36)
[2021-01-18 04:41] LABS: Anion Gap 9 mmol/L (10-20); BUN (Urea Nitrogen) 33 mg/dL (9.8-20.1); Calc. Creatinine Clearance 81 mL/min (70-130); Calcium 7.9 mg/dL (7.8-10.44); Carbon Dioxide 27 mmol/L (23-31); Chloride 106 mmol/L (98-107); Glucose 147 mg/dL (83-110); Potassium 3.2 mmol/L (3.5-5.1); Sodium 139 mmol/L (136-145)
[2021-01-18 04:43] LABS: Hemoglobin 8.2 g/dL (12.0-16.0); Mean Corpuscular HGB CONC 32.1 g/dL (32.0-36.0); Mean Corpuscular Volume 93.4 fL (78.0-98.0); Mean Platelet Volume 8.6 fL (7.4-10.4); Platelet Count 194 thou/uL (130-400); RBC Distribution Width 15.9 % (11.5-14.5); Red Blood Cell (RBC) Count 2.72 mill/uL (4.20-5.40)
[2021-01-18 04:57] LABS: Band 7 % (5-11); Eosinophils 4 % (0-10); Lymphocytes 7 % (21-51); MDiff Complete? YES; Monocytes 12 % (0-10); Neutrophil 70 % (42-75)
[2021-01-18] MEDS ORDERED: Potassium Chloride 40 MEQ in Premix Bag 1 BAG IVPB SCH (05:30)
[2021-01-18] MEDS ORDERED: Fentanyl CADD 100 ML ONE (05:42)
[2021-01-18] MEDS: Fentanyl CADD 100 ML IV SCH (05:49)
[2021-01-18] MEDS: Pantoprazole 40 MG VIAL IVP SCH (08:00)
[2021-01-18] MEDS: Magnesium Oxide 400 MG TAB PO SCH (08:00)
[2021-01-18] MEDS: Carvedilol 6.25 MG TAB PO SCH ×2 (08:01→21:39)
[2021-01-18] MEDS: Venlafaxine HCl XR 75 MG CAP PO SCH (08:01)
[2021-01-18 08:05] LABS: Actual Bicarbonate (HCO3a) 26.8 mEq/L (22-28); Analyzer IN Cardio ER; Base Excess (BEa) 1.8 mEq/L (-2.0 to +3.0); CO2 Tension 44.1 mmHg (35.0-45.0); Calcium, Ionized (arterial) 1.22 mmol/L (1.12-1.30); Carboxyhemoglobin (COHb) 0.3 gm% (0.0-3.0); Hemoglobin (Hb) 9.7 g/dL (12.0-16.0); O2 Tension (PaO2), arterial 109.2 mmHg (> 70.0)
[2021-01-18 08:12] LABS: ALV-art Gradient 120.875 mmHg (0-20); Puncture Site RRA
[2021-01-18] MEDS ORDERED: Alendronate Sodium 70 mg Tablet PO SCH (09:00)
[2021-01-18] MEDS: HumaLOG 300 UNITS/3 ML VIAL SC PRN ×3 (11:18→22:08)
[2021-01-18] MEDS: Budesonide 0.5 MG/2 ML NEB NEB SCH (18:07)
[2021-01-18] MEDS: Enoxaparin Sodium 40 MG/0.4 ML SYRINGE SC SCH (21:40)
[2021-01-18] MEDS: Multivitamins, Adult 10 ML, ZINC/COPPER/MANGANESE/SELENIUM 1 ML in D15W-AA 5% with Lyte... IV SCH (22:52)
[2021-01-19 04:57] LABS: Hemoglobin 8.7 g/dL (12.0-16.0); Mean Corpuscular HGB CONC 32.2 g/dL (32.0-36.0); Mean Corpuscular Hemoglobin 29.6 pg (27.0-31.0); Mean Corpuscular Volume 92.2 fL (78.0-98.0); Mean Platelet Volume 8.3 fL (7.4-10.4); Platelet Count 217 thou/uL (130-400); RBC Distribution Width 15.6 % (11.5-14.5); Red Blood Cell (RBC) Count 2.93 mill/uL (4.20-5.40); White Blood Cell (WBC) Count 8.2 thou/uL (4.8-10.8)
[2021-01-19 05:09] LABS: Anion Gap 9 mmol/L (10-20); BUN (Urea Nitrogen) 31 mg/dL (9.8-20.1); Calc. Creatinine Clearance 88 mL/min (70-130); Calcium 8.5 mg/dL (7.8-10.44); Carbon Dioxide 28 mmol/L (23-31); Chloride 103 mmol/L (98-107); Glucose 152 mg/dL (83-110); Potassium 3.1 mmol/L (3.5-5.1); Sodium 137 mmol/L (136-145)
[2021-01-19] MEDS ORDERED: Potassium Chloride 40 MEQ in Premix Bag 1 BAG IVPB SCH (05:30)
[2021-01-19 05:33] LABS: Band 17 % (5-11); Eosinophils 3 % (0-10); Lymphocytes 8 % (21-51); MDiff Complete? YES; Monocytes 4 % (0-10); Neutrophil 68 % (42-75)
[2021-01-19] MEDS: hydrALAZINE 20 MG/ML VIAL SLOW IVP PRN ×3 (05:43→16:30)
[2021-01-19] MEDS: Piperacillin/Tazobactam 4.5 GM in Sodium Chloride 0.9% 100 ML IVPB SCH ×4 (05:43→23:19)
[2021-01-19] MEDS: Budesonide 0.5 MG/2 ML NEB NEB SCH ×2 (07:47→18:07)
[2021-01-19] MEDS ORDERED: Furosemide 40 MG/4 ML VIAL IVP SCH (09:00)
[2021-01-19] MEDS: Venlafaxine HCl XR 75 MG CAP PO SCH (09:09)
[2021-01-19] MEDS: Magnesium Oxide 400 MG TAB PO SCH (09:09)
[2021-01-19] MEDS: Carvedilol 6.25 MG TAB PO SCH ×2 (09:09→21:29)
[2021-01-19] MEDS: Pantoprazole 40 MG VIAL IVP SCH (09:09)
[2021-01-19] MEDS: HumaLOG 300 UNITS/3 ML VIAL SC PRN ×3 (09:19→23:22)
[2021-01-19] MEDS: Enoxaparin Sodium 40 MG/0.4 ML SYRINGE SC SCH (21:31)
[2021-01-19] MEDS: Multivitamins, Adult 10 ML, ZINC/COPPER/MANGANESE/SELENIUM 1 ML in D15W-AA 5% with Lyte... IV SCH (22:58)
[2021-01-20 05:21] LABS: Hemoglobin 8.5 g/dL (12.0-16.0); Mean Corpuscular HGB CONC 31.7 g/dL (32.0-36.0); Mean Corpuscular Hemoglobin 30.1 pg (27.0-31.0); Mean Corpuscular Volume 94.8 fL (78.0-98.0); Mean Platelet Volume 9.2 fL (7.4-10.4); Platelet Count 221 thou/uL (130-400); RBC Distribution Width 16.1 % (11.5-14.5); Red Blood Cell (RBC) Count 2.84 mill/uL (4.20-5.40)
[2021-01-20 05:33] LABS: Anion Gap 10 mmol/L (10-20); BUN (Urea Nitrogen) 34 mg/dL (9.8-20.1); Calc. Creatinine Clearance 63 mL/min (70-130); Calcium 8.7 mg/dL (7.8-10.44); Carbon Dioxide 29 mmol/L (23-31); Chloride 98 mmol/L (98-107); Potassium 4.3 mmol/L (3.5-5.1); Sodium 133 mmol/L (136-145)
[2021-01-20 05:36] LABS: Glucose 783 mg/dL (83-110)
[2021-01-20 05:42] LABS: Band 16 % (5-11); Eosinophils 2 % (0-10); Lymphocytes 7 % (21-51); MDiff Complete? YES; Monocytes 7 % (0-10); Neutrophil 68 % (42-75)
[2021-01-20] MEDS: HumaLOG 300 UNITS/3 ML VIAL SC PRN ×4 (05:48→22:19)
[2021-01-20] MEDS: Piperacillin/Tazobactam 4.5 GM in Sodium Chloride 0.9% 100 ML IVPB SCH ×4 (05:48→23:11)
[2021-01-20 07:22] LABS: Glucose 174 mg/dL (83-110)
[2021-01-20] MEDS: Budesonide 0.5 MG/2 ML NEB NEB SCH ×2 (08:00→19:22)
[2021-01-20] MEDS ORDERED: Furosemide 40 MG/4 ML VIAL IVP SCH (08:30)
[2021-01-20] MEDS: Carvedilol 6.25 MG TAB PO SCH ×2 (09:24→21:39)
[2021-01-20] MEDS: Magnesium Oxide 400 MG TAB PO SCH (09:25)
[2021-01-20] MEDS: Venlafaxine HCl XR 75 MG CAP PO SCH (09:25)
[2021-01-20] MEDS: Pantoprazole 40 MG VIAL IVP SCH (09:25)
[2021-01-20] MEDS: hydrALAZINE 20 MG/ML VIAL SLOW IVP PRN ×2 (09:53→23:11)
[2021-01-20 12:33] LABS: Prothrombin Time 14.7 sec (12.0-14.7)
[2021-01-20 12:34] LABS: INR-International Normal Ratio 1.1; PTT 30.3 sec (22.9-36.1)
[2021-01-20] MEDS ORDERED: Lidocaine 1% PF 5 ML VIAL ONE (14:08)
[2021-01-20] MEDS ORDERED: Sodium Bicarbonate 2.5 MEQ/5 ML VIAL ONE (14:08)
[2021-01-20 20:18] LABS: Pleural Fluid, Protein 1.8 g/dL
[2021-01-20 20:28] LABS: RBC Count-Automated (BF) 1110 /cu.mm; WBC/Nucleated-Auto (BF) 961 uL
[2021-01-20 20:30] LABS: BF Color Yellow; Body Fluid Source Thoracentesis Fluid; Clarity Clear (Clear); Tube # EDTA
[2021-01-20 21:43] LABS: BF Segmented Neutrophils 7 %; Cell Count Non Hematic 27 %; Eosinophils 1 %; Lymphocytes 65 %
[2021-01-20] MEDS: Multivitamins, Adult 10 ML, ZINC/COPPER/MANGANESE/SELENIUM 1 ML in D15W-AA 5% with Lyte... IV SCH (22:18)
[2021-01-21] MEDS: hydrALAZINE 20 MG/ML VIAL SLOW IVP PRN (03:44)
[2021-01-21 05:24] LABS: INR-International Normal Ratio 1.3; PTT 31.9 sec (22.9-36.1); Prothrombin Time 16.1 sec (12.0-14.7)
[2021-01-21 05:25] LABS: Hemoglobin 8.8 g/dL (12.0-16.0); Mean Corpuscular HGB CONC 30.9 g/dL (32.0-36.0); Mean Corpuscular Hemoglobin 29.6 pg (27.0-31.0); Mean Corpuscular Volume 95.9 fL (78.0-98.0); Mean Platelet Volume 8.7 fL (7.4-10.4); Platelet Count 215 thou/uL (130-400); RBC Distribution Width 16.5 % (11.5-14.5); Red Blood Cell (RBC) Count 2.96 mill/uL (4.20-5.40); White Blood Cell (WBC) Count 5.2 thou/uL (4.8-10.8)
[2021-01-21 05:29] LABS: Lymphocytes 12 % (21-51); MDiff Complete? YES; Monocytes 9 % (0-10); Neutrophil 79 % (42-75); Platelet Morphology Comment Appears Adequate
[2021-01-21] MEDS: Piperacillin/Tazobactam 4.5 GM in Sodium Chloride 0.9% 100 ML IVPB SCH ×4 (05:32→22:45)
[2021-01-21 05:40] LABS: Anion Gap 16 mmol/L (10-20); BUN (Urea Nitrogen) 34 mg/dL (9.8-20.1); Calc. Creatinine Clearance 60 mL/min (70-130); Calcium 8.3 mg/dL (7.8-10.44); Carbon Dioxide 26 mmol/L (23-31); Chloride 93 mmol/L (98-107); Potassium 4.7 mmol/L (3.5-5.1); Sodium 130 mmol/L (136-145)
[2021-01-21] MEDS: Budesonide 0.5 MG/2 ML NEB NEB SCH ×2 (07:53→19:07)
[2021-01-21 07:57] LABS: Actual Bicarbonate (HCO3a) 33.1 mEq/L (22-28); Base Excess (BEa) 8.4 mEq/L (-2.0 to +3.0); CO2 Tension 47.1 mmHg (35.0-45.0); Calcium, Ionized (arterial) 1.19 mmol/L (1.12-1.30); Carboxyhemoglobin (COHb) 0.2 gm% (0.0-3.0); Hemoglobin (Hb) 10.5 g/dL (12.0-16.0); O2 Tension (PaO2), arterial 69.7 mmHg (> 70.0); Potassium - ABG Lab 2.91 mmol/L (3.70-5.30); pH, Arterial 7.47 (7.35-7.45)
[2021-01-21 07:59] LABS: Puncture Site RRA
[2021-01-21] MEDS ORDERED: Furosemide 40 MG/4 ML VIAL SLOW IVP SCH (08:15)
[2021-01-21] MEDS: Venlafaxine HCl XR 75 MG CAP PO SCH (08:49)
[2021-01-21] MEDS: Carvedilol 6.25 MG TAB PO SCH ×2 (08:49→21:04)
[2021-01-21] MEDS: Pantoprazole 40 MG VIAL IVP SCH (08:50)
[2021-01-21] MEDS: Magnesium Oxide 400 MG TAB PO SCH (08:50)
[2021-01-21] MEDS: HumaLOG 300 UNITS/3 ML VIAL SC PRN (12:05)
[2021-01-22] MEDS: hydrALAZINE 20 MG/ML VIAL SLOW IVP PRN (03:41)
[2021-01-22 05:10] LABS: Anion Gap 13 mmol/L (10-20); BUN (Urea Nitrogen) 41 mg/dL (9.8-20.1); Calc. Creatinine Clearance 81 mL/min (70-130); Calcium 8.4 mg/dL (7.8-10.44); Carbon Dioxide 30 mmol/L (23-31); Chloride 102 mmol/L (98-107); Glucose 135 mg/dL (83-110); Magnesium 1.5 mg/dL (1.6-2.6); Sodium 143 mmol/L (136-145)
[2021-01-22 05:11] LABS: Phosphorus 3.5 mg/dL (2.3-4.7)
[2021-01-22 05:14] LABS: Band 26 % (5-11); Eosinophils 1 % (0-10); Hemoglobin 9.4 g/dL (12.0-16.0); Lymphocytes 10 % (21-51); MDiff Complete? YES; Mean Corpuscular HGB CONC 31.8 g/dL (32.0-36.0); Mean Corpuscular Hemoglobin 28.7 pg (27.0-31.0); Mean Corpuscular Volume 90.2 fL (78.0-98.0); Mean Platelet Volume 8.7 fL (7.4-10.4); Monocytes 7 % (0-10); Neutrophil 56 % (42-75); Platelet Count 227 thou/uL (130-400); Platelet Morphology Comment Appears Adequate; RBC Distribution Width 16.2 % (11.5-14.5); Red Blood Cell (RBC) Count 3.29 mill/uL (4.20-5.40); White Blood Cell (WBC) Count 6.1 thou/uL (4.8-10.8)
[2021-01-22 05:16] LABS: Potassium 2.4 mmol/L (3.5-5.1)
[2021-01-22] MEDS: Piperacillin/Tazobactam 4.5 GM in Sodium Chloride 0.9% 100 ML IVPB SCH ×4 (06:05→23:19)
[2021-01-22] MEDS: Potassium Chloride 40 MEQ in Premix Bag 1 BAG IVPB SCH ×2 (06:08→08:45)
[2021-01-22] MEDS ORDERED: Magnesium 2 GM/50 ML 2 GM in Premix Bag 1 BAG IVPB SCH (06:30)
[2021-01-22 07:20] LABS: Actual Bicarbonate (HCO3a) 27.3 mEq/L (22-28); Base Excess (BEa) 5.3 mEq/L (-2.0 to +3.0); CO2 Tension 30.5 mmHg (35.0-45.0); Calcium, Ionized (arterial) 1.15 mmol/L (1.12-1.30); Carboxyhemoglobin (COHb) 0.1 gm% (0.0-3.0); Hemoglobin (Hb) 10.2 g/dL (12.0-16.0); O2 Tension (PaO2), arterial 72.4 mmHg (> 70.0); Potassium - ABG Lab 3.12 mmol/L (3.70-5.30)
[2021-01-22] MEDS: Budesonide 0.5 MG/2 ML NEB NEB SCH ×2 (07:25→19:44)
[2021-01-22 07:28] LABS: ALV-art Gradient 139.025 mmHg (0-20); Puncture Site RRA; pH, Arterial 7.57 (7.35-7.45)
[2021-01-22] MEDS: Carvedilol 6.25 MG TAB PO SCH ×2 (08:44→20:54)
[2021-01-22] MEDS: Pantoprazole 40 MG VIAL IVP SCH (08:45)
[2021-01-22] MEDS: Magnesium Oxide 400 MG TAB PO SCH (08:45)
[2021-01-22] MEDS: Venlafaxine HCl XR 75 MG CAP PO SCH (08:45)
[2021-01-22] MEDS: Enoxaparin Sodium 40 MG/0.4 ML SYRINGE SC SCH (20:54)
[2021-01-23 03:52] LABS: Anion Gap 16 mmol/L (10-20); BUN (Urea Nitrogen) 42 mg/dL (9.8-20.1); Calc. Creatinine Clearance 74 mL/min (70-130); Calcium 8.4 mg/dL (7.8-10.44); Carbon Dioxide 27 mmol/L (23-31); Chloride 109 mmol/L (98-107); Glucose 124 mg/dL (83-110); Potassium 3.1 mmol/L (3.5-5.1); Sodium 149 mmol/L (136-145)
[2021-01-23 03:57] LABS: Hemoglobin 8.7 g/dL (12.0-16.0); Lymphocytes 19 % (21-51); MDiff Complete? YES; Mean Corpuscular HGB CONC 32.8 g/dL (32.0-36.0); Mean Corpuscular Hemoglobin 29.8 pg (27.0-31.0); Mean Corpuscular Volume 90.8 fL (78.0-98.0); Mean Platelet Volume 8.7 fL (7.4-10.4); Monocytes 1 % (0-10); Neutrophil 80 % (42-75); Platelet Count 227 thou/uL (130-400); Platelet Morphology Comment Appears Adequate; RBC Distribution Width 16.7 % (11.5-14.5); Red Blood Cell (RBC) Count 2.91 mill/uL (4.20-5.40); White Blood Cell (WBC) Count 5.9 thou/uL (4.8-10.8)
[2021-01-23] MEDS ORDERED: Potassium Chloride 40 MEQ in Premix Bag 1 BAG IVPB SCH (04:30)
[2021-01-23] MEDS: Piperacillin/Tazobactam 4.5 GM in Sodium Chloride 0.9% 100 ML IVPB SCH ×3 (05:41→16:52)
[2021-01-23] MEDS: Budesonide 0.5 MG/2 ML NEB NEB SCH ×2 (07:48→19:41)
[2021-01-23] MEDS: Magnesium Oxide 400 MG TAB PO SCH (09:15)
[2021-01-23] MEDS: Venlafaxine HCl XR 75 MG CAP PO SCH (09:15)
[2021-01-23] MEDS: Carvedilol 6.25 MG TAB PO SCH ×2 (09:15→21:41)
[2021-01-23] MEDS: Pantoprazole 40 MG VIAL IVP SCH (09:15)
[2021-01-23 10:06] LABS: Phosphorus 3.2 mg/dL (2.3-4.7)
[2021-01-23] MEDS: hydrALAZINE 20 MG/ML VIAL SLOW IVP PRN (18:13)
[2021-01-23] MEDS: Enoxaparin Sodium 40 MG/0.4 ML SYRINGE SC SCH (21:41)
[2021-01-23] MEDS: NIFEdipine 10 MG CAP PO SCH (21:41)
[2021-01-24] MEDS: hydrALAZINE 20 MG/ML VIAL SLOW IVP PRN (01:42)
[2021-01-24] MEDS: Piperacillin/Tazobactam 4.5 GM in Sodium Chloride 0.9% 100 ML IVPB SCH ×4 (01:45→17:40)
[2021-01-24 04:38] LABS: Band 3 % (5-11); Hemoglobin 7.5 g/dL (12.0-16.0); Hypochromia SLIGHT = 6-15 cells (100X) (0-5/hpf); Lymphocytes 22 % (21-51); MDiff Complete? YES; Mean Corpuscular HGB CONC 33.2 g/dL (32.0-36.0); Mean Corpuscular Hemoglobin 30.2 pg (27.0-31.0); Mean Corpuscular Volume 90.9 fL (78.0-98.0); Mean Platelet Volume 8.4 fL (7.4-10.4); Neutrophil 75 % (42-75); Platelet Count 231 thou/uL (130-400); Platelet Morphology Comment Appears Adequate; RBC Distribution Width 16.5 % (11.5-14.5); Red Blood Cell (RBC) Count 2.49 mill/uL (4.20-5.40); White Blood Cell (WBC) Count 7.3 thou/uL (4.8-10.8)
[2021-01-24 04:55] LABS: Anion Gap 14 mmol/L (10-20); BUN (Urea Nitrogen) 37 mg/dL (9.8-20.1); Calc. Creatinine Clearance 68 mL/min (70-130); Calcium 8.6 mg/dL (7.8-10.44); Carbon Dioxide 25 mmol/L (23-31); Chloride 115 mmol/L (98-107); Glucose 153 mg/dL (83-110); Phosphorus 2.8 mg/dL (2.3-4.7); Sodium 151 mmol/L (136-145)
[2021-01-24 04:59] LABS: Potassium 2.8 mmol/L (3.5-5.1)
[2021-01-24] MEDS: Budesonide 0.5 MG/2 ML NEB NEB SCH ×2 (07:40→19:31)
[2021-01-24] MEDS: Potassium Chloride 40 MEQ in Premix Bag 1 BAG IVPB SCH ×2 (08:41→12:00)
[2021-01-24] MEDS: Dextrose 5% in Water 1,000 ML IV SCH (08:42)
[2021-01-24] MEDS: Pantoprazole 40 MG VIAL IVP SCH (08:49)
[2021-01-24] MEDS: Carvedilol 6.25 MG TAB PO SCH ×2 (08:49→21:43)
[2021-01-24] MEDS: Magnesium Oxide 400 MG TAB PO SCH (08:49)
[2021-01-24] MEDS: Venlafaxine HCl XR 75 MG CAP PO SCH (08:58)
[2021-01-24] MEDS: NIFEdipine 10 MG CAP PO SCH ×2 (08:58→21:43)
[2021-01-24] MEDS: Enoxaparin Sodium 40 MG/0.4 ML SYRINGE SC SCH (21:43)
[2021-01-25] MEDS: Piperacillin/Tazobactam 4.5 GM in Sodium Chloride 0.9% 100 ML IVPB SCH ×4 (00:30→18:01)
[2021-01-25] MEDS: Dextrose 5% in Water 1,000 ML IV SCH ×2 (04:30→10:21)
[2021-01-25 05:06] LABS: Anion Gap 9 mmol/L (10-20); BUN (Urea Nitrogen) 35 mg/dL (9.8-20.1); Calc. Creatinine Clearance 72 mL/min (70-130); Calcium 8.3 mg/dL (7.8-10.44); Carbon Dioxide 27 mmol/L (23-31); Chloride 120 mmol/L (98-107); Glucose 144 mg/dL (83-110); Potassium 3.4 mmol/L (3.5-5.1); Sodium 153 mmol/L (136-145)
[2021-01-25 05:12] LABS: Band 2 % (5-11); Eosinophils 1 % (0-10); Hemoglobin 8.4 g/dL (12.0-16.0); Lymphocytes 14 % (21-51); MDiff Complete? YES; Mean Corpuscular HGB CONC 32.1 g/dL (32.0-36.0); Mean Corpuscular Hemoglobin 29.5 pg (27.0-31.0); Mean Platelet Volume 8.6 fL (7.4-10.4); Monocytes 3 % (0-10); Neutrophil 80 % (42-75); Platelet Count 194 thou/uL (130-400); Platelet Morphology Comment Appears Adequate; RBC Distribution Width 16.6 % (11.5-14.5); Red Blood Cell (RBC) Count 2.84 mill/uL (4.20-5.40); White Blood Cell (WBC) Count 5.5 thou/uL (4.8-10.8)
[2021-01-25] MEDS ORDERED: Potassium Chloride 40 MEQ in Premix Bag 1 BAG IVPB SCH (06:00)
[2021-01-25] MEDS ORDERED: Magnesium 2 GM/50 ML 2 GM in Premix Bag 1 BAG IVPB SCH (06:15)
[2021-01-25] MEDS: Budesonide 0.5 MG/2 ML NEB NEB SCH ×2 (07:34→18:33)
[2021-01-25] MEDS: Pantoprazole 40 MG GRANULES PACKET PO SCH (08:30)
[2021-01-25] MEDS: Magnesium Oxide 400 MG TAB PO SCH (08:30)
[2021-01-25] MEDS: Carvedilol 6.25 MG TAB PO SCH ×2 (08:30→20:08)
[2021-01-25] MEDS: NIFEdipine 10 MG CAP PO SCH ×2 (08:30→20:40)
[2021-01-25] MEDS: Venlafaxine HCl XR 75 MG CAP PO SCH (08:30)
[2021-01-25] MEDS: Acetaminophen 325 MG TAB PO PRN ×2 (10:22→20:45)
[2021-01-25] MEDS: hydrALAZINE 20 MG/ML VIAL SLOW IVP PRN (18:01)
[2021-01-25] MEDS: Enoxaparin Sodium 40 MG/0.4 ML SYRINGE SC SCH (20:10)
[2021-01-26] MEDS: Piperacillin/Tazobactam 4.5 GM in Sodium Chloride 0.9% 100 ML IVPB SCH ×2 (00:09→06:09)
[2021-01-26] MEDS: Dextrose 5% in Water 1,000 ML IV SCH (00:18)
[2021-01-26 07:08] LABS: Band 3 % (5-11); Hypochromia SLIGHT = 6-15 cells (100X) (0-5/hpf); Lymphocytes 25 % (21-51); MDiff Complete? YES; Mean Corpuscular HGB CONC 31.1 g/dL (32.0-36.0); Mean Corpuscular Hemoglobin 28.5 pg (27.0-31.0); Mean Corpuscular Volume 91.6 fL (78.0-98.0); Mean Platelet Volume 8.7 fL (7.4-10.4); Neutrophil 72 % (42-75); Platelet Count 195 thou/uL (130-400); Platelet Morphology Comment Appears Adequate; RBC Distribution Width 16.3 % (11.5-14.5); Red Blood Cell (RBC) Count 3.17 mill/uL (4.20-5.40); White Blood Cell (WBC) Count 5.5 thou/uL (4.8-10.8)
[2021-01-26 07:18] LABS: Anion Gap 13 mmol/L (10-20); BUN (Urea Nitrogen) 30 mg/dL (9.8-20.1); Calc. Creatinine Clearance 80 mL/min (70-130); Calcium 8.4 mg/dL (7.8-10.44); Carbon Dioxide 23 mmol/L (23-31); Chloride 114 mmol/L (98-107); Glucose 104 mg/dL (83-110); Magnesium 2.2 mg/dL (1.6-2.6); Potassium 3.1 mmol/L (3.5-5.1); Sodium 147 mmol/L (136-145)
[2021-01-26] MEDS ORDERED: Potassium Chloride 20 MEQ TAB PO SCH (08:00)
[2021-01-26] MEDS: Budesonide 0.5 MG/2 ML NEB NEB SCH (08:00)
[2021-01-26] MEDS: Magnesium Oxide 400 MG TAB PO SCH (08:15)
[2021-01-26] MEDS: Venlafaxine HCl XR 75 MG CAP PO SCH (08:16)
[2021-01-26] MEDS: Pantoprazole 40 MG GRANULES PACKET PO SCH (08:16)
[2021-01-26] MEDS: NIFEdipine 10 MG CAP PO SCH ×2 (08:17→20:27)
[2021-01-26] MEDS: Carvedilol 6.25 MG TAB PO SCH ×2 (08:17→20:25)
[2021-01-26] MEDS: hydrALAZINE 20 MG/ML VIAL SLOW IVP PRN ×2 (14:39→20:27)
[2021-01-26] MEDS: cloNIDine 0.1 MG TAB PO PRN (15:45)
[2021-01-26] MEDS ORDERED: CEFAZOLIN 2 GM in Premix Bag 1 BAG IVPB SCH (16:45)
[2021-01-26] MEDS ORDERED: Labetalol HCl 100 MG/20 ML VIAL SLOW IVP PRN (17:14)
[2021-01-26] MEDS ORDERED: cloNIDine 0.2mg/24 Hour PATCH TD SCH (19:00)
[2021-01-26] MEDS: Acetaminophen 325 MG TAB PO PRN (20:24)
[2021-01-26] MEDS: Enoxaparin Sodium 40 MG/0.4 ML SYRINGE SC SCH (20:27)
[2021-01-26] MEDS ORDERED: Furosemide 40 MG/4 ML VIAL SLOW IVP SCH (22:45)
[2021-01-26 22:54] LABS: CO2 Tension 31.4 mmHg (35.0-45.0); Calcium, Ionized (arterial) 1.24 mmol/L (1.12-1.30); Carboxyhemoglobin (COHb) 0.4 gm% (0.0-3.0); Hemoglobin (Hb) 11.5 g/dL (12.0-16.0); Potassium - ABG Lab 3.25 mmol/L (3.70-5.30); pH, Arterial 7.46 (7.35-7.45)
[2021-01-26 22:55] LABS: Puncture Site RRA
[2021-01-26 23:10] LABS: #Eosinphils 0.2 thou/uL (0.0-0.7); #Lymphocytes 1.1 thou/uL (1.20-3.40); #Monocytes 0.2 thou/uL (0.11-0.59); #Neutrophils 5.3 thou/uL (1.40-6.50); %Basophils 0.2 % (0.0-1.0); %Eosinophils 2.3 % (0.0-10.0); %Lymphocytes 15.9 % (21.0-51.0); %Monocytes 3.4 % (0.0-10.0); %Neutrophils 78.2 % (42.0-75.0); Hemoglobin 9.7 g/dL (12.0-16.0); Mean Corpuscular HGB CONC 31.5 g/dL (32.0-36.0); Mean Corpuscular Hemoglobin 28.6 pg (27.0-31.0); Mean Corpuscular Volume 90.9 fL (78.0-98.0); Mean Platelet Volume 8.4 fL (7.4-10.4); Platelet Count 185 thou/uL (130-400); RBC Distribution Width 15.9 % (11.5-14.5); Red Blood Cell (RBC) Count 3.38 mill/uL (4.20-5.40); White Blood Cell (WBC) Count 6.8 thou/uL (4.8-10.8)
[2021-01-26 23:17] LABS: Lactic Acid 1.1 mmol/L (0.5-2.2)
[2021-01-26 23:24] LABS: ALT (SGPT) 18 U/L (8-55); AST (SGOT) 20 U/L (5-34); Albumin 2.7 g/dL (3.4-4.8); Alkaline Phosphatase 85 U/L (40-110); Anion Gap 12 mmol/L (10-20); BUN (Urea Nitrogen) 30 mg/dL (9.8-20.1); Bilirubin, Total 0.4 mg/dL (0.2-1.2); CRP (Inflammatory) 3.07 mg/dL (= or < 0.5); Calc. Creatinine Clearance 81 mL/min (70-130); Calcium 8.5 mg/dL (7.8-10.44); Carbon Dioxide 25 mmol/L (23-31); Chloride 115 mmol/L (98-107); Globulin 3.7 g/dL (2.4-3.5); Glucose 127 mg/dL (83-110); Potassium 3.2 mmol/L (3.5-5.1); Protein, Total 6.4 g/dL (5.8-8.1); Sodium 149 mmol/L (136-145)
[2021-01-27] MEDS: hydrALAZINE 20 MG/ML VIAL SLOW IVP PRN ×2 (00:11→01:57)
[2021-01-27] MEDS ORDERED: Potassium Chloride 20 MEQ TAB PO SCH ×2 (01:00→06:45)
[2021-01-27 04:11] LABS: Hemoglobin 10.4 g/dL (12.0-16.0); Mean Corpuscular HGB CONC 32.2 g/dL (32.0-36.0); Mean Corpuscular Volume 89.9 fL (78.0-98.0); Mean Platelet Volume 8.8 fL (7.4-10.4); Platelet Count 232 thou/uL (130-400); RBC Distribution Width 16.2 % (11.5-14.5); Red Blood Cell (RBC) Count 3.58 mill/uL (4.20-5.40); White Blood Cell (WBC) Count 6.3 thou/uL (4.8-10.8)
[2021-01-27 04:19] LABS: Anion Gap 13 mmol/L (10-20); BUN (Urea Nitrogen) 29 mg/dL (9.8-20.1); Calc. Creatinine Clearance 88 mL/min (70-130); Carbon Dioxide 23 mmol/L (23-31); Chloride 111 mmol/L (98-107); Glucose 93 mg/dL (83-110); Magnesium 1.9 mg/dL (1.6-2.6); Sodium 144 mmol/L (136-145)
[2021-01-27 04:30] LABS: Band 1 % (5-11); Lymphocytes 16 % (21-51); MDiff Complete? YES; Monocytes 5 % (0-10); Neutrophil 77 % (42-75); Platelet Morphology Comment Appears Adequate; Reactive Lymphocytes 1 % (0-10)
[2021-01-27] MEDS ORDERED: Magnesium 2 GM/50 ML 2 GM in Premix Bag 1 BAG IVPB SCH (06:30)
[2021-01-27] MEDS: NIFEdipine 10 MG CAP PO SCH ×2 (08:46→21:22)
[2021-01-27] MEDS: Magnesium Oxide 400 MG TAB PO SCH (08:46)
[2021-01-27] MEDS: Furosemide 20 MG/2 ML VIAL SLOW IVP SCH ×2 (08:46→21:21)
[2021-01-27] MEDS: Carvedilol 6.25 MG TAB PO SCH (08:46)
[2021-01-27] MEDS: Venlafaxine HCl XR 75 MG CAP PO SCH (08:47)
[2021-01-27] MEDS ORDERED: Furosemide 20 MG/2 ML VIAL SLOW IVP SCH (09:00)
[2021-01-27] MEDS ORDERED: Furosemide 40 MG/4 ML VIAL SLOW IVP SCH (09:00)
[2021-01-27] MEDS ORDERED: Venlafaxine HCl XR 75 MG CAP PO SCH (09:45)
[2021-01-27 10:14] LABS: Magnesium 1.9 mg/dL (1.6-2.6)
[2021-01-27] MEDS ORDERED: Venlafaxine HCl 25 MG TAB PO SCH (11:45)
[2021-01-27] MEDS ORDERED: Lidocaine 2% PF 5 ML VIAL ONE (13:43)
[2021-01-27] MEDS ORDERED: PROPOFOL 200 MG/20 ML VIAL ONE (14:30)
[2021-01-27] MEDS ORDERED: Lidocaine 1% PF 5 ML VIAL ONE (14:30)
[2021-01-27] MEDS ORDERED: Electrolyte Replacement Protocol FS SCH (16:15)
[2021-01-27] MEDS: hydrALAZINE 25 MG TAB PO SCH ×2 (16:56→21:21)
[2021-01-27] MEDS: Carvedilol 25 MG TAB PO SCH (16:56)
[2021-01-27] MEDS: Enoxaparin Sodium 40 MG/0.4 ML SYRINGE SC SCH (21:22)
[2021-01-28 04:23] LABS: Anion Gap 11 mmol/L (10-20); BUN (Urea Nitrogen) 40 mg/dL (9.8-20.1); Calc. Creatinine Clearance 75 mL/min (70-130); Carbon Dioxide 26 mmol/L (23-31); Chloride 114 mmol/L (98-107); Glucose 127 mg/dL (83-110); Potassium 3.2 mmol/L (3.5-5.1); Sodium 148 mmol/L (136-145)
[2021-01-28 04:43] LABS: Band 5 % (5-11); Eosinophils 2 % (0-10); Hemoglobin 8.9 g/dL (12.0-16.0); Lymphocytes 22 % (21-51); MDiff Complete? YES; Mean Corpuscular HGB CONC 32.3 g/dL (32.0-36.0); Mean Corpuscular Hemoglobin 28.9 pg (27.0-31.0); Mean Corpuscular Volume 89.4 fL (78.0-98.0); Mean Platelet Volume 9.6 fL (7.4-10.4); Monocytes 3 % (0-10); Neutrophil 68 % (42-75); Platelet Count 200 thou/uL (130-400); RBC Distribution Width 16.1 % (11.5-14.5); Red Blood Cell (RBC) Count 3.09 mill/uL (4.20-5.40); White Blood Cell (WBC) Count 4.5 thou/uL (4.8-10.8)
[2021-01-28] MEDS ORDERED: Potassium Chloride 20 MEQ TAB PO SCH (06:15)
[2021-01-28] MEDS ORDERED: Potassium Bicarbonate/Cit Ac 20 MEQ TAB PO SCH (06:45)
[2021-01-28] MEDS ORDERED: hydrALAZINE 25 MG TAB PO SCH (09:00)
[2021-01-28] MEDS ORDERED: Carvedilol 25 MG TAB PO SCH (09:00)
[2021-01-28] MEDS ORDERED: Venlafaxine HCl XR 75 MG CAP PO SCH (09:00)
[2021-01-28] MEDS: Furosemide 20 MG/2 ML VIAL SLOW IVP SCH (09:58)
[2021-01-28] MEDS: NIFEdipine 10 MG CAP PO SCH (09:58)
[2021-01-28] MEDS: Venlafaxine HCl 25 MG TAB PO SCH (09:59)
[2021-01-28] MEDS: Magnesium Oxide 400 MG TAB PO SCH (09:59)
[2021-01-28] MEDS: Carvedilol 25 MG TAB PO SCH ×2 (10:31→17:32)
[2021-01-28] MEDS: Potassium Chloride 20 MEQ TAB PO SCH ×2 (15:01→17:31)
[2021-01-28] MEDS: Enoxaparin Sodium 40 MG/0.4 ML SYRINGE SC SCH (20:34)
[2021-01-29 05:18] LABS: Mean Corpuscular HGB CONC 32.2 g/dL (32.0-36.0); Mean Platelet Volume 9.3 fL (7.4-10.4); Platelet Count 173 thou/uL (130-400); RBC Distribution Width 15.7 % (11.5-14.5); Red Blood Cell (RBC) Count 3.09 mill/uL (4.20-5.40); White Blood Cell (WBC) Count 5.4 thou/uL (4.8-10.8)
[2021-01-29 05:29] LABS: Anion Gap 11 mmol/L (10-20); BUN (Urea Nitrogen) 46 mg/dL (9.8-20.1); Calc. Creatinine Clearance 78 mL/min (70-130); Calcium 9.3 mg/dL (7.8-10.44); Carbon Dioxide 28 mmol/L (23-31); Chloride 115 mmol/L (98-107); Glucose 117 mg/dL (83-110); Potassium 3.8 mmol/L (3.5-5.1); Sodium 150 mmol/L (136-145)
[2021-01-29 06:00] LABS: Band 2 % (5-11); Eosinophils 5 % (0-10); Lymphocytes 22 % (21-51); MDiff Complete? YES; Monocytes 5 % (0-10); Neutrophil 66 % (42-75)
[2021-01-29] MEDS: Magnesium Oxide 400 MG TAB PO SCH (09:14)
[2021-01-29] MEDS: Acetaminophen 325 MG TAB PO PRN (09:14)
[2021-01-29] MEDS: Pantoprazole 40 MG GRANULES PACKET PO SCH (09:14)
[2021-01-29] MEDS: Carvedilol 25 MG TAB PO SCH ×2 (09:15→16:38)
[2021-01-29] MEDS: NIFEdipine 10 MG CAP PO SCH (11:52)
[2021-01-29] MEDS: Venlafaxine HCl 25 MG TAB PO SCH (11:52)
[2021-01-29] MEDS ORDERED: Metoclopramide HCl 10 MG/2 ML VIAL IVP PRN (18:30)
[2021-01-29] MEDS: Dextrose 5% in Water 1,000 ML IV SCH (19:30)
[2021-01-29] MEDS: Enoxaparin Sodium 40 MG/0.4 ML SYRINGE SC SCH (20:34)
[2021-01-29] MEDS: hydrALAZINE 20 MG/ML VIAL SLOW IVP PRN (21:12)
[2021-01-30 05:42] LABS: Hemoglobin 8.9 g/dL (12.0-16.0); Mean Corpuscular HGB CONC 33.2 g/dL (32.0-36.0); Mean Corpuscular Hemoglobin 29.7 pg (27.0-31.0); Mean Corpuscular Volume 89.4 fL (78.0-98.0); Mean Platelet Volume 9.7 fL (7.4-10.4); Platelet Count 167 thou/uL (130-400); RBC Distribution Width 15.3 % (11.5-14.5); Red Blood Cell (RBC) Count 3.01 mill/uL (4.20-5.40); White Blood Cell (WBC) Count 6.7 thou/uL (4.8-10.8)
[2021-01-30] MEDS: Dextrose 5% in Water 1,000 ML IV SCH (05:45)
[2021-01-30 05:46] LABS: Anion Gap 15 mmol/L (10-20); BUN (Urea Nitrogen) 33 mg/dL (9.8-20.1); Calc. Creatinine Clearance 94 mL/min (70-130); Calcium 8.9 mg/dL (7.8-10.44); Carbon Dioxide 21 mmol/L (23-31); Chloride 108 mmol/L (98-107); Glucose 116 mg/dL (83-110); Potassium 3.6 mmol/L (3.5-5.1); Sodium 140 mmol/L (136-145)
[2021-01-30 06:39] LABS: Band 10 % (5-11); Eosinophils 5 % (0-10); Lymphocytes 29 % (21-51); MDiff Complete? YES; Monocytes 6 % (0-10); Neutrophil 50 % (42-75)
[2021-01-30] MEDS: Carvedilol 25 MG TAB PO SCH ×2 (09:20→18:15)
[2021-01-30] MEDS: Pantoprazole 40 MG GRANULES PACKET PO SCH (09:20)
[2021-01-30] MEDS: Magnesium Oxide 400 MG TAB PO SCH (09:20)
[2021-01-30] MEDS: Venlafaxine HCl 25 MG TAB PO SCH (09:21)
[2021-01-30] MEDS: NIFEdipine 10 MG CAP PO SCH (10:53)
[2021-01-30] MEDS: Enoxaparin Sodium 40 MG/0.4 ML SYRINGE SC SCH (20:24)
[2021-01-31 07:12] LABS: Anion Gap 15 mmol/L (10-20); BUN (Urea Nitrogen) 26 mg/dL (9.8-20.1); Calc. Creatinine Clearance 94 mL/min (70-130); Calcium 8.9 mg/dL (7.8-10.44); Carbon Dioxide 22 mmol/L (23-31); Chloride 104 mmol/L (98-107); Glucose 97 mg/dL (83-110); Potassium 3.3 mmol/L (3.5-5.1); Sodium 138 mmol/L (136-145)
[2021-01-31 07:29] LABS: Mean Corpuscular HGB CONC 32.8 g/dL (32.0-36.0); Mean Corpuscular Hemoglobin 28.9 pg (27.0-31.0); Mean Corpuscular Volume 88.2 fL (78.0-98.0); Mean Platelet Volume 10.6 fL (7.4-10.4); Platelet Count 172 thou/uL (130-400); RBC Distribution Width 15.2 % (11.5-14.5); White Blood Cell (WBC) Count 6.8 thou/uL (4.8-10.8)
[2021-01-31] MEDS ORDERED: Potassium Chloride 20 MEQ TAB PO SCH (07:45)
[2021-01-31 09:01] LABS: Band 4 % (5-11); Eosinophils 3 % (0-10); Lymphocytes 19 % (21-51); MDiff Complete? YES; Monocytes 8 % (0-10); Neutrophil 66 % (42-75); Platelet Morphology Comment Appears Adequate
[2021-01-31] MEDS: Pantoprazole 40 MG GRANULES PACKET PO SCH (10:31)
[2021-01-31] MEDS: NIFEdipine 10 MG CAP PO SCH (10:31)
[2021-01-31] MEDS: Venlafaxine HCl 25 MG TAB PO SCH (10:31)
[2021-01-31] MEDS: Magnesium Oxide 400 MG TAB PO SCH (10:31)
[2021-01-31] MEDS: Carvedilol 25 MG TAB PO SCH ×2 (10:32→17:01)
[2021-01-31] MEDS: Enoxaparin Sodium 40 MG/0.4 ML SYRINGE SC SCH (20:58)
[2021-02-01 06:34] LABS: Anion Gap 15 mmol/L (10-20); BUN (Urea Nitrogen) 22 mg/dL (9.8-20.1); Calc. Creatinine Clearance 99 mL/min (70-130); Calcium 9.1 mg/dL (7.8-10.44); Carbon Dioxide 22 mmol/L (23-31); Chloride 105 mmol/L (98-107); Glucose 91 mg/dL (83-110); Potassium 3.7 mmol/L (3.5-5.1); Sodium 138 mmol/L (136-145)
[2021-02-01 06:43] LABS: Band 9 % (5-11); Eosinophils 1 % (0-10); Hemoglobin 9.3 g/dL (12.0-16.0); Lymphocytes 18 % (21-51); MDiff Complete? YES; Mean Corpuscular HGB CONC 33.5 g/dL (32.0-36.0); Mean Corpuscular Hemoglobin 29.4 pg (27.0-31.0); Mean Corpuscular Volume 87.8 fL (78.0-98.0); Mean Platelet Volume 10.5 fL (7.4-10.4); Monocytes 7 % (0-10); Neutrophil 65 % (42-75); Platelet Count 155 thou/uL (130-400); RBC Distribution Width 14.9 % (11.5-14.5); Red Blood Cell (RBC) Count 3.15 mill/uL (4.20-5.40); White Blood Cell (WBC) Count 7.3 thou/uL (4.8-10.8)
[2021-02-01] MEDS: NIFEdipine 10 MG CAP PO SCH (08:34)
[2021-02-01] MEDS: Magnesium Oxide 400 MG TAB PO SCH (08:34)
[2021-02-01] MEDS: Carvedilol 25 MG TAB PO SCH ×2 (08:34→17:27)
[2021-02-01] MEDS: Venlafaxine HCl 25 MG TAB PO SCH (08:35)
[2021-02-01] MEDS: Pantoprazole 40 MG GRANULES PACKET PO SCH (08:35)
[2021-02-01] MEDS: Acetaminophen 325 MG TAB PO PRN (11:51)
[2021-02-01] MEDS: Enoxaparin Sodium 40 MG/0.4 ML SYRINGE SC SCH (20:01)
[2021-02-02 06:01] LABS: Anion Gap 14 mmol/L (10-20); BUN (Urea Nitrogen) 29 mg/dL (9.8-20.1); Calc. Creatinine Clearance 96 mL/min (70-130); Calcium 9.3 mg/dL (7.8-10.44); Carbon Dioxide 23 mmol/L (23-31); Chloride 102 mmol/L (98-107); Glucose 109 mg/dL (83-110); Potassium 3.5 mmol/L (3.5-5.1); Sodium 135 mmol/L (136-145)
[2021-02-02 06:08] LABS: Band 3 % (5-11); Eosinophils 7 % (0-10); Hemoglobin 9.1 g/dL (12.0-16.0); Lymphocytes 19 % (21-51); MDiff Complete? YES; Mean Corpuscular HGB CONC 33.9 g/dL (32.0-36.0); Mean Corpuscular Volume 88.3 fL (78.0-98.0); Mean Platelet Volume 7.5 fL (7.4-10.4); Monocytes 10 % (0-10); Neutrophil 61 % (42-75); Platelet Count 169 thou/uL (130-400); RBC Distribution Width 14.8 % (11.5-14.5); Red Blood Cell (RBC) Count 3.04 mill/uL (4.20-5.40); White Blood Cell (WBC) Count 6.6 thou/uL (4.8-10.8)
[2021-02-02] MEDS: Carvedilol 25 MG TAB PO SCH (08:41)
[2021-02-02] MEDS: Magnesium Oxide 400 MG TAB PO SCH (08:41)
[2021-02-02] MEDS: Venlafaxine HCl 25 MG TAB PO SCH (08:41)
[2021-02-02] MEDS: Pantoprazole 40 MG GRANULES PACKET PO SCH (08:41)
[2021-02-02] MEDS: NIFEdipine 10 MG CAP PO SCH (08:43)
[2021-02-02] MEDS ORDERED: cloNIDine 0.2mg/24 Hour PATCH TD SCH (09:00)
[2021-02-02] MEDS ORDERED: Potassium Bicarbonate/Cit Ac 20 MEQ TAB PER TUBE SCH (09:15)
[2021-02-02] MEDS: Acetaminophen 325 MG TAB PO PRN (10:07)
[2021-02-02 12:07] LABS: SARS-CoV-2 NAA Rapid Test Not Detected (NotDetected)
[2021-02-02 16:20] VITALS: BP 154/79; TEMP 97.6
== END 2021-02-02 17:57 | DRG 329 ==
LOC: SURG A 01-03 05:37 → EDSTATUS 01-03 11:00 → T4-A 01-03 19:37 → SURG B 01-04 22:52 → CCU 01-05 19:29 → SURG A 01-06 12:06 → CCU 01-13 14:06 → SJJU 01-25 19:12 → IMCU/EMU 01-27 03:18 → SJJU 01-28 18:52
PROVIDERS: ADMIT Specialist; ATTEND Specialist
PROC: 0DBN4ZZ Excision of Sigmoid Colon, Percutaneous Endoscopic Approach (ICD-10-PCS; 2021-01-03)
PROC: 0DNL4ZZ Release Transverse Colon, Percutaneous Endoscopic Approach (ICD-10-PCS; 2021-01-03)
PROC: 0DB80ZZ Excision of Small Intestine, Open Approach (ICD-10-PCS; 2021-01-03)
PROC: 3E0T3BZ Introduction of Anesthetic Agent into Peripheral Nerves and Plexi, Percutaneous Approach (ICD-10-PCS; 2021-01-03)
PROC: 0DB80ZZ Excision of Small Intestine, Open Approach (ICD-10-PCS; 2021-01-05)
PROC: 0WJG4ZZ Inspection of Peritoneal Cavity, Percutaneous Endoscopic Approach (ICD-10-PCS; 2021-01-05)
PROC: 0DN80ZZ Release Small Intestine, Open Approach (ICD-10-PCS; 2021-01-13)
PROC: 3E033XZ Introduction of Vasopressor into Peripheral Vein, Percutaneous Approach (ICD-10-PCS; 2021-01-13)
PROC: 5A1955Z Respiratory Ventilation, Greater than 96 Consecutive Hours (ICD-10-PCS; 2021-01-13)
PROC: 0D1B0Z4 Bypass Ileum to Cutaneous, Open Approach (ICD-10-PCS; 2021-01-14)
PROC: 3E0336Z Introduction of Nutritional Substance into Peripheral Vein, Percutaneous Approach (ICD-10-PCS; 2021-01-14)
PROC: 30233N1 Transfusion of Nonautologous Red Blood Cells into Peripheral Vein, Percutaneous Approach (ICD-10-PCS; 2021-01-15)
PROC: 02HV33Z Insertion of Infusion Device into Superior Vena Cava, Percutaneous Approach (ICD-10-PCS; principal; 2021-01-17)
PROC: B548ZZA Ultrasonography of Superior Vena Cava, Guidance (ICD-10-PCS; 2021-01-17)
PROC: 0W993ZX Drainage of Right Pleural Cavity, Percutaneous Approach, Diagnostic (ICD-10-PCS; 2021-01-20)
PROC: 5A09457 Assistance with Respiratory Ventilation, 24-96 Consecutive Hours, Continuous Positive Airway Pressure (ICD-10-PCS; 2021-01-21)
PROC: 0D9670Z Drainage of Stomach with Drainage Device, Via Natural or Artificial Opening (ICD-10-PCS; 2021-01-24)
PROC: 0DH63UZ Insertion of Feeding Device into Stomach, Percutaneous Approach (ICD-10-PCS; 2021-01-27)
DX: Z43.3 Encounter for attention to colostomy (principal); K65.9 Peritonitis, unspecified; J95.821 Acute postprocedural respiratory failure; Z66 Do not resuscitate; Z20.822 Contact with and (suspected) exposure to COVID-19; A41.9 Sepsis, unspecified organism; G93.41 Metabolic encephalopathy; J90 Pleural effusion, not elsewhere classified; N17.9 Acute kidney failure, unspecified; K56.7 Ileus, unspecified; E87.4 Mixed disorder of acid-base balance; K91.89 Other postprocedural complications and disorders of digestive system; E87.1 Hypo-osmolality and hyponatremia; J81.1 Chronic pulmonary edema; D62 Acute posthemorrhagic anemia; E87.0 Hyperosmolality and hypernatremia; K63.2 Fistula of intestine; E44.0 Moderate protein-calorie malnutrition; K57.92 Diverticulitis of intestine, part unspecified, without perforation or abscess without bleeding; I10 Essential (primary) hypertension; M10.9 Gout, unspecified; H40.9 Unspecified glaucoma; M19.90 Unspecified osteoarthritis, unspecified site; F32.9 Major depressive disorder, single episode, unspecified; E86.0 Dehydration; J45.909 Unspecified asthma, uncomplicated; E87.6 Hypokalemia; E83.42 Hypomagnesemia; Y83.8 Other surgical procedures as the cause of abnormal reaction of the patient, or of later complication, without mention of misadventure at the time of the procedure; E66.01 Morbid (severe) obesity due to excess calories; R13.12 Dysphagia, oropharyngeal phase; K66.0 Peritoneal adhesions (postprocedural) (postinfection); Z90.710 Acquired absence of both cervix and uterus; Z79.899 Other long term (current) drug therapy; Z90.49 Acquired absence of other specified parts of digestive tract; Z53.31 Laparoscopic surgical procedure converted to open procedure; Z68.31 Body mass index [BMI] 31.0-31.9, adult; Z87.891 Personal history of nicotine dependence
CPT/HCPCS: 36415; 36416; 36430; 36569; 36600; 71045; 74018; 74022; 74176; 74230; 76942; 80048; 80053; 80061; 81001; 82805; 82945; 83605; 83615; 83735; 83880; 84100; 84157; 85007; 85025; 85027; 85060; 85610; 85730; 86140; 86850; 86900; 86901; 87070; 87086; 87116; 87205; 87206; 88304; 88307; 89051; 93306; 94002; 94003; 94640; 94660; C1751; C9113; J0360; J0690; J1100; J1170; J1450; J1644; J1650; J1815; J1885; J1940; J2001; J2060; J2185; J2250; J2270; J2370; J2405; J2543; J2704; J3010; J3475; J3480; J3490; J7050; J7611; J7620; J7626; P9016; P9047; Q9967; S0020; S0028; U0002